=== PATIENT | female | born 1980 | race Caucasian/White ===

== ENCOUNTER 2017-08-02 19:37 | Emergency (ER) | payer OTHER ==
--- OUTSIDE RECORDS SUMMARY | 2017-08-02 19:39 | XMS REPORT | Clinical Summary ---
:1980 Author Organization [facility] Address [address] [place] [address] Care Team Providers Name Role Phone Robert Zhang MD Primary Care Provider Allergies Active Allergy Reactions Severity Noted Date Comments Cephalexin High 02/17/2017 Penicillins High 02/17/2017 Prednisolone High 02/17/2017 Current Medications Prescription Sig. Disp. Refills Start Date End Date Status metoprolol succinate XL TK 1 T PO ONCE D 0 02/14/2017 Active (TOPROL-XL) 25 mg 24 hr tablet meloxicam (MOBIC) 7.5 mg TK 1 T PO D 1 02/16/2017 Active tablet Active Problems No known active problems Encounters Date Type Specialty Care Team Description 03/15/2017 Office Visit Orthopedic Surgery Shubham Rubio. Tenosynovitis of left MD CRISTAL ankle (Primary Dx) 02/20/2017 Documentation Orthopedic Surgery Shubham Rubio. MD CRISTAL 02/17/2017 Hospital Encounter Radiology Shubham Rubio. Rupture of left MD CRISTAL Achilles tendon, initial encounter 02/17/2017 Office Visit Orthopedic Surgery Shubham Rubio Rupture of left Achilles tendon, initial encounter (Primary Dx); MD CRISTAL Injury of plantaris muscle or tendon, initial encounter 02/17/2017 Procedure Pass Radiology after 08/01/2016 Family History Medical History Relation Name Comments Diabetes Father Heart disease Father Kidney disease Father Skin cancer Father Stroke Father Relation Name Status Comments Father Social History Tobacco Use Types Packs/Day Years Used Date Never Smoker Alcohol Use Drinks/Week oz/Week Comments Yes Sex Assigned at Date Recorded Not on file Last Filed Vital Signs Vital Sign Reading Time Taken Blood Pressure - - Pulse - - Temperature - - Respiratory Rate - - Oxygen Saturation - - Inhaled Oxygen Concentration - - Weight 69.4 kg (153 lb) 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 Height 165.1 cm (5' 5") 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 FINDINGS: MARROW/JOINT SPACES: *Marrow: No marrow signal abnormalities, fractures or stress changes. Scattered areas of hematopoietic marrow are noted distal tibia and calcaneus. No suspicious marrow lesions. *Talar Dome/Cartilage:No osteochondral lesions of the talar dome or focal cartilage defects. *Additional Findings: None JOINT FLUID: *Small posterior ankle joint effusion TENDONS: *Achilles tendon: Mild non-insertional Achilles tendinosis and tendon thickening. No tears. Small amount of edema in the pre-Achilles fat can be seen with paratendinitis. *Anterior: Intact *Medial: intact. *Peroneal: Partial split tear of the peroneus longus tendon best seen on series 5 images 35 through 39. The peroneus brevis tendon is intact. *Additional Findings: Mild tenosynovitis of the posterior tibialis tendon. LIGAMENTS: *Syndesmotic: Ant rior syndesmotic ligaments are intact. *Lateral: Old sprain of the anterior talofibular ligament. The calcaneofibular ligament and posterior talofibular ligament are intact. *Medial: Deep deltoid ligament intact. The superficial deltoid ligament is attenuated that may reflect an old sprain. *Spring Ligament complex:Intact *Additional Findings: None SINUS TARSI: *Intact. PLANTAR FASCIA: *Intact. TARSAL TUNNEL: *Normal. SOFT TISSUES: * No fluid collections, hematomas or edema. OTHER: *None IMPRESSION: 1.Mild non-insertional Achilles tendinosis with findings that can be seen with paratendinitis. 2.Small posterior ankle joint effusion. 3.Partial split tear of the inframalleolar peroneus longus tendon. 4.Old low lateral ankle sprain. [facility]-[id number] Procedure Note Hm Interface, Radiology Results Incoming - 02/17/2017 6:55 PM PRESCHOOL TEACHER EXAMINATION: MRI LOWER EXTREMITY JOINT WO CONTRAST LEFT CLINICAL HISTORY: S86.012A Strain of left Achilles tendon initial encounter, PAIN COMPARISON: X-rays 02/17/2017 TECHNIQUE: Multiplanar multisequence MRI of the left ankle was performed without contrast. FINDINGS: MARROW/JOINT SPACES: * Marrow: No marrow signal abnormalities, fractures or stress changes. Scattered areas of hematopoietic marrow are noted distal tibia and calcaneus. No suspicious marrow lesions. * Talar Dome/Cartilage:No osteochondral lesions of the talar dome or focal cartilage defects. * Additional Findings: None JOINT FLUID: * Small posterior ankle joint effusion TENDONS: * Achilles tendon: Mild non-insertional Achilles tendinosis and tendon thickening. No tears. Small amount of edema in the pre-Achilles fat can be seen with paratendinitis. * Anterior: Intact * Medial: intact. * Peroneal: Partial split tear of the peroneus longus tendon best seen on series 5 images 35 through 39. The peroneus brevis tendon is intact. * Additional Findings: Mild tenosynovitis of the posterior tibialis tendon. LIGAMENTS: * Syndesmotic: Ant rior syndesmotic ligaments are intact. * Lateral: Old sprain of the anterior talofibular ligament. The calcaneofibular ligament and posterior talofibular ligament are intact. * Medial: Deep deltoid ligament intact. The superficial deltoid ligament is attenuated that may reflect an old sprain. * Spring Ligament complex:Intact * Additional Findings: None SINUS TARSI: * Intact. PLANTAR FASCIA: * Intact. TARSAL TUNNEL: * Normal. SOFT TISSUES: * No fluid collections, hematomas or edema. OTHER: * None IMPRESSION: 1. Mild non-insertional Achilles tendinosis with findings that can be seen with paratendinitis. 2. Small posterior ankle joint effusion. 3. Partial split tear of the inframalleolar peroneus longus tendon. 4. Old low lateral ankle sprain. [facility]-[id number] XR Calcaneus 2+ Vw Left (02/17/2017 11:21 AM) Specimen Performing Laboratory [facility] [address] [place] [id number] Narrative 2 view images of the left calcaneus reveals no evidence of acute fracture or dislocation. Bones are well mineralized. High calcaneal inclination. after 08/01/2016 Insurance Payer Benefit Plan / Group Subscriber ID Type Phone Address RAPHAEL LIM OPEN ACCESS/NETWORK xxxxxxxxxxx HMO
[2017-08-02 22:28] LABS: Urine Blood NEGATIVE (NEG); Urine Glucose NEGATIVE (NEG); Urine Protein NEGATIVE (NEG); Urine Specific Gravity 1.025 (1.005-1.030); Urine pH 5.5 (5.0-7.0)
[2017-08-02] MEDS ORDERED: NA CHLORIDE 0.9% 1,000 ML ONE (22:46)
[2017-08-02] MEDS ORDERED: ACETAMINOPHEN 500 MG TAB ONE (22:51)
[2017-08-02 22:54] LABS: Absolute Lymphocytes (CBC) 1.9 K/uL (0.7-4.9); Absolute Monocytes 0.5 K/uL (0.1-1.3); Absolute Neutrophil 3.8 K/uL (1.8-8.0); Eosinophils % 3.1 % (0-4.4); Lymphocytes % 29.8 % (15.3-44.8); MCH 29.4 pg (27.0-35.0); MCV 88.7 fL (80-100); MPV 9.2 fL (7.6-11.3); Monocytes % 7.4 % (3.3-12.3); RBC Red Blood Cell Count 4.73 M/uL (3.86-4.86)
[2017-08-02 23:06] LABS: Potassium 3.3 mEq/L (3.6-5.0)
--- NOTE | 2017-08-02 23:23 | EDPHYS ---
Physician Documentation [facility] Name: Massiel Hood Age: 37 yrs Sex: Female : 1980 Arrival Date: 08/02/2017 Time: 19:40 Bed 14 Private MD: Robert Zhang V ED Physician Jordan Mon HPI: 08/02 23:18 This 37 yrs old Female presents to ER via Ambulatory with complaints of cee Pelvic Pain, Headache. 23:18 The patient complains of pain to the forehead, left temporal area and right temporal cee area. The patient describes the headache as aching. Onset: The symptoms/episode began/occurred today. 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 - Social history:: Smoking status: Patient/guardian denies using tobacco. ROS: 23:19 Constitutional: Negative for fever, chills, and weight loss, Eyes: Negative for injury, cee pain, redness, and discharge, ENT: Negative for injury, pain, and discharge, Neck: Negative for injury, pain, and swelling, Cardiovascular: Negative for chest pain, palpitations, and edema, Respiratory: Negative for shortness of breath, cough, wheezing, and pleuritic chest pain, Abdomen/GI: Negative for abdominal pain, nausea, vomiting, diarrhea, and constipation, Back: Negative for injury and pain, MS/Extremity: Negative for injury and deformity, Skin: Negative for injury, rash, and discoloration, Psych: Negative for depression, anxiety, suicide ideation, homicidal ideation, and hallucinations, Allergy/Immunology: Negative for hives, rash, and allergies, Endocrine: Negative for neck swelling, polydipsia, polyuria, polyphagia, and marked weight changes, Hematologic/Lymphatic: Negative for swollen nodes, abnormal bleeding, and unusual bruising. 23:19 Abdomen/GI: Negative for abdominal pain. 23:19 : Positive for pelvic pain. 23:19 Neuro: Positive for headache. Exam: 23:19 Constitutional: This is a well developed, well nourished patient who is awake, alert, cee and in no acute distress. Head/Face: Normocephalic, atraumatic. Eyes: Pupils equal round and reactive to light, extra-ocular motions intact. Lids and lashes normal. Conjunctiva and sclera are non-icteric and not injected. Cornea within normal limits. Periorbital areas with no swelling, redness, or edema. ENT: Nares patent. No nasal discharge, no septal abnormalities noted. Tympanic membranes are normal and external auditory canals are clear. Oropharynx with no redness, swelling, or masses, exudates, or evidence of obstruction, uvula midline. Mucous membranes moist. Neck: Trachea midline, no thyromegaly or masses palpated, and no cervical lymphadenopathy. Supple, full range of motion without nuchal rigidity, or vertebral point tenderness. No Meningismus. Chest/axilla: Normal chest wall appearance and motion. Nontender with no deformity. No lesions are appreciated. Cardiovascular: Regular rate and rhythm with a normal S1 and S2. No gallops, murmurs, or rubs. Normal PMI, no JVD. No pulse deficits. Respiratory: Lungs have equal breath sounds bilaterally, clear to auscultation and percussion. No rales, rhonchi or wheezes noted. No increased work of breathing, no retractions or nasal flaring. Back: No spinal tenderness. No costovertebral tenderness. Full range of motion. Female : Normal external genitalia. Skin: Warm, dry with normal turgor. Normal color with no rashes, no lesions, and no evidence of cellulitis. MS/ Extremity: Pulses equal, no cyanosis. Neurovascular intact. Full, normal range of motion. Neuro: Awake and alert, GCS 15, oriented to person, place, time, and situation. Cranial nerves II-XII grossly intact. Motor strength 5/5 in all extremities. Sensory grossly intact. Cerebellar exam normal. Normal gait. Psych: Awake, alert, with orientation to person, place and time. Behavior, mood, and affect are within normal limits. 23:19 Abdomen/GI: Inspection: abdomen appears normal, Bowel sounds: normal, Palpation: abdomen is soft and non-tender, Liver: no appreciated palpable abnormalities, Hernia: not appreciated. 23:19 Neuro: Orientation: is normal, appropriate for stated age, no acute changes, Mentation: is normal, appropriate for stated age, no acute changes, Memory: is normal, appropriate for stated age, no acute changes, Cranial nerves: grossly normal, is grossly normal based on the patient's age, no acute changes, Cerebellar function: is grossly normal, is grossly normal based on the patient's age, no acute changes, Motor: is normal, Sensation: is normal, Gait: not tested. Babinski testing is normal, seizure activity, is not displayed by the patient. Vital Signs: 20:09 BP 150 / 98; Pulse 92; Resp 16; Temp 99.4; Pulse Ox 99% on R/A; Weight 74.84 kg; Height aj 5 ft. 5 in. (165.10 cm); Pain 8/10; 21:31 BP 136 / 77; Pulse 69; Resp 18; cb2 22:30 BP 137 / 86 RA Supine (auto/reg); Pulse 66 LA; Resp 18 S; Pulse Ox 99% on R/A; cb2 08/03 00:02 BP 138 / 79 RA Sitting (auto/reg); Pulse 73 LA; Resp 18 S; Temp 98.3(O); Pulse Ox 98% cb2 on R/A; 08/02 20:09 Body Mass Index 27.46 (74.84 kg, 165.10 cm) aj MDM: 08/02 22:12 Patient medically screened. [facility] 23:19 Data reviewed: vital signs, nurses notes, lab test result(s). [facility] 08/02 21:56 Order name: Urine Dipstick--Ancillary (enter results); Complete Time: 23:17 2 08/02 22:13 Order name: Abo/rh Typing [facility] 08/02 22:13 Order name: Basic Metabolic Panel; Complete Time: 23:17 [facility] 08/02 22:13 Order name: CBC with Diff; Complete Time: 23:17 [facility] 08/02 22:51 Order name: Urine --Ancillary (enter results) [facility] 08/02 22:13 Order name: IV Saline Lock; Complete Time: 22:45 [facility] 08/02 22:13 Order name: Labs collected and sent; Complete Time: 22:45 [facility] 08/02 22:13 Order name: NPO; Complete Time: 23:15 [facility] 08/02 22:13 Order name: Urine Dipstick-Ancillary (obtain specimen); Complete Time: 22:49 [facility] 08/02 22:15 Order name: Urine Test (obtain specimen); Complete Time: 22:50 [facility] 08/02 23:24 Order name: Vital Signs; Complete Time: 00:03 [facility] Administered Medications: 22:50 Drug: NS 0.9% 1000 ml Route: IV; Rate: 1 bolus; Site: left antecubital; mg2 23:49 Follow up: Response: No adverse reaction mg2 22:54 Drug: Tylenol 1000 mg Route: PO; mg2 23:49 Follow up: Response: No adverse reaction; Pain is decreased mg2 23:49 Drug: Potassium Chloride 40 mEq Route: PO; mg2 08/03 00:12 Follow up: Response: No adverse reaction mg2 Disposition: 08/02/17 23:23 Discharged to Home. Impression: Pelvic and perineal pain, Headache. - Condition is Stable. - Discharge Instructions: General Headache Without Cause, Pelvic Pain, Female, General Headache Without Cause, [place]of[place]. - Prescriptions for Ibuprofen 600 mg Oral Tablet - take 1 tablet by ORAL route every 6 hours As needed take with food; 21 tablet. Tylenol- Codeine #3 300-30 mg Oral Tablet - take 2 tablets by ORAL route every 6 hours As needed; 20 tablet. - Medication Reconciliation Form, Thank You Letter, Antibiotic Education, Prescription Opioid Use form. - Follow up: Robert Zhang MD; When: 2 - 3 days; Reason: Recheck today's complaints, Continuance of care, Re-evaluation by your physician. Follow up: Arcelia Harley MD; When: 2 - 3 days; Reason: Recheck today's complaints, Continuance of care, Re-evaluation by your physician. - Problem is new. - Symptoms have improved. Signatures: Dispatcher [employer] Merissa Cao RN RN aj Anderson, Corey, MD MD cha Gardose, Michele, RN RN mg2 Corrections: (The following items were deleted from the chart) 00:20 0502 23:23 08/02/2017 23:23 Discharged to Home. Impression: Pelvic and perineal pain; mg2 Headache. Condition is Stable. Forms are Medication Reconciliation Form, Thank You Letter, Antibiotic Education, Prescription Opioid Use. Follow up: Robert Zhang; When: 2 - 3 days; Reason: Recheck today's complaints, Continuance of care, Re-evaluation by your physician. Follow up: Arcelia Harley; When: 2 - 3 days; Reason: Recheck today's complaints, Continuance of care, Re-evaluation by your physician. Problem is new. Symptoms have improved. cee
--- NOTE | 2017-08-02 23:23 | ER ---
Nurse's Notes [facility] Name: Massiel Hood Age: 37 yrs Sex: Female : 1980 Arrival Date: 08/02/2017 Time: 19:40 Bed 14 Private MD: Robert Zhang V Diagnosis: Pelvic and perineal pain;Headache Presentation: 08/02 20:07 Presenting complaint: Patient states: Pelvic pain for 2 weeks. 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 Transition of care: patient was not received from another setting of care. Onset of symptoms was July 21, 2017. Initial Sepsis Screen: Does the patient meet any 2 criteria? No. Patient's initial sepsis screen is negative. Does the patient have a suspected source of infection? No. Patient's initial sepsis screen is negative. Care prior to arrival: None. 20:07 Method Of Arrival: Ambulatory aj 20:07 Acuity: HORACIO 3 aj Triage Assessment: 20:09 Headache History: The patient has had previous headaches. General: Appears in no aj apparent distress. uncomfortable, Behavior is calm, cooperative, appropriate for age. Pain: Complains of pain in pelvis Pain currently is 8 out of 10 on a pain scale. Also complains of headache. Neuro: Level of Consciousness is awake, alert, obeys commands, Oriented to person, place, time, situation. Respiratory: Airway is patent Respiratory effort is even, unlabored, Respiratory pattern is regular, symmetrical. : Reports pain in suprapubic area. Derm: Skin is intact, is healthy with good turgor, Skin is pink, warm \T\ dry. normal. 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 - Social history:: Smoking status: Patient/guardian denies using tobacco. Screenin:41 Abuse screen: Denies threats or abuse. Nutritional screening: No deficits noted. mg2 Tuberculosis screening: No symptoms or risk factors identified. Fall Risk None identified. Assessment: 21:42 General: Appears in no apparent distress. comfortable, Behavior is calm, cooperative, mg2 quiet. Pain: Complains of pain in lower abdomen Pain does not radiate. Pain Quality of pain is described as aching, Pain began gradually, Is intermittent. Neuro: Level of Consciousness is awake, alert, obeys commands, Oriented to person, place, time. Cardiovascular: Capillary refill < 3 seconds Patient's skin is warm and dry. Respiratory: Airway is patent Respiratory effort is even, unlabored, Respiratory pattern is regular, symmetrical. GI: Abdomen is flat. : Reports pain pelvic area. EENT: No deficits noted. Derm: Skin is intact, Skin is pink, warm \T\ dry. normal. Musculoskeletal: No signs and/or symptoms reported regarding the musculoskeletal system. 22:40 Reassessment: Patient appears in no apparent distress at this time. Patient and/or mg2 family updated on plan of care and expected duration. Pain level reassessed. Patient is alert, oriented x 3, equal unlabored respirations, skin warm/dry/pink. Patient states feeling better. 23:40 Reassessment: Patient appears in no apparent distress at this time. Patient and/or mg2 family updated on plan of care and expected duration. Pain level reassessed. Patient is alert, oriented x 3, equal unlabored respirations, skin warm/dry/pink. Patient states feeling better. Vital Signs: 20:09 BP 150 / 98; Pulse 92; Resp 16; Temp 99.4; Pulse Ox 99% on R/A; Weight 74.84 kg; Height aj 5 ft. 5 in. (165.10 cm); Pain 8/10; 21:31 BP 136 / 77; Pulse 69; Resp 18; cb2 22:30 BP 137 / 86 RA Supine (auto/reg); Pulse 66 LA; Resp 18 S; Pulse Ox 99% on R/A; cb2 08/03 00:02 BP 138 / 79 RA Sitting (auto/reg); Pulse 73 LA; Resp 18 S; Temp 98.3(O); Pulse Ox 98% cb2 on R/A; 08/02 20:09 Body Mass Index 27.46 (74.84 kg, 165.10 cm) ED Course: 08/02 19:40 Patient arrived in ED. am2 19:40 Robert Zhang MD is Private Physician. am2 20:08 Triage completed. aj 20:09 Arm band placed on right wrist. Patient placed in waiting room, Patient notified of wait time. 21:26 Won Andujar, CATRACHITA is Primary Nurse. mg2 22:10 No provider procedures requiring assistance completed. mg2 22:12 Jordan Mon MD is Attending Physician. [facility] 22:45 Initial lab(s) drawn, by nv, sent to lab. Inserted saline lock: 20 gauge in left cb2 antecubital area, using aseptic technique. Blood collected. 23:22 Robert Zhang MD is Referral Physician. [facility] 23:22 Arcelia Harley MD is Referral Physician. [facility] 08/03 00:20 Patient has correct armband on for positive identification. Warm blanket given. mg2 00:20 IV discontinued. mg2 Administered Medications: 08/02 22:50 Drug: NS 0.9% 1000 ml Route: IV; Rate: 1 bolus; Site: left antecubital; mg2 23:49 Follow up: Response: No adverse reaction mg2 22:54 Drug: Tylenol 1000 mg Route: PO; mg2 23:49 Follow up: Response: No adverse reaction; Pain is decreased mg2 23:49 Drug: Potassium Chloride 40 mEq Route: PO; mg2 08/03 00:12 Follow up: Response: No adverse reaction mg2 Outcome: 08/02 23:23 Discharge ordered by . [facility] 08/03 00:19 Discharged to home ambulatory. mg2 Condition: stable Discharge instructions given to patient, Instructed on discharge instructions, follow up and referral plans. Demonstrated understanding of instructions, follow-up care, medications, Prescriptions given X 2. 00:20 Patient left the ED. mg2 Signatures: Merissa Chris RN RN Jordna Luna MD MD cha Moreno, Amanda am2 Stevie Patel cb2 Won Andujar, CATRACHITA RN mg2 Corrections: (The following items were deleted from the chart) 02:20 02:18 No provider procedures requiring assistance completed. mg2 mg2 02:20 02:18 IV discontinued, mg2 mg2 02:21 05 20:09 Pain: Complains of pain in pelvis Pain currently is 8 out of 10 on a pain mg2 scale. aj
[2017-08-02 23:28] LABS: Urine Specific Gravity 1.025 (1.005-1.030)
[2017-08-02] MEDS ORDERED: POTASSIUM CL SA 10 MEQ TAB PO ONE (23:43)
[2017-08-03 01:11] VITALS: BP 138/79; TEMP 98.3; O2SAT 98
== END 2017-08-03 00:20 | disposition home or self-care (01) ==
LOC: ER 19:37
DX: R10.2 Pelvic and perineal pain (principal); R51 Headache
CPT/HCPCS: 36415; 80048; 81003; 81025; 85025; 86900; 86901; 99284; J7030

== ENCOUNTER 2017-08-29 06:28 | Day surgery (SDC) | payer OTHER ==
--- OUTSIDE RECORDS SUMMARY | 2017-08-29 06:33 | XMS REPORT | Clinical Summary ---
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 4.Old low lateral ankle sprain. [facility]-[id number] Procedure Note Hm Interface, Radiology Results Incoming - 02/17/2017 6:55 PM EMAIL DESIGNER EXAMINATION: MRI LOWER EXTREMITY JOINT WO CONTRAST [...] tendon. 4. Old low lateral ankle sprain. [id number] XR Calcaneus 2+ Vw Left (02/17/2017 11:21 AM) Specimen [facility] [address] [place] [id number] Narrative 2 view images of the left calcaneus reveals no evidence of acute fracture or dislocation. Bones are well mineralized. High calcaneal inclination. after 08/28/2016 Insurance Payer Benefit Plan / Group Subscriber ID Type Phone Address RAPHAEL LIM OPEN ACCESS/NETWORK xxxxxxxxxxx HMO
[2017-08-29] MEDS ORDERED: Ringers Lactate 1,000 ML IV ONE ×2 (06:36→09:15)
[2017-08-29] MEDS ORDERED: SCOPOLAMINE HYDROBROMIDE PATCH TD ONE (06:47)
[2017-08-29] MEDS ORDERED: ROCURONIUM 50 MG/5 ML VIAL IV ONE (07:05)
[2017-08-29] MEDS ORDERED: PROPOFOL 200 MG/20 ML VIAL IV ONE (07:05)
[2017-08-29] MEDS ORDERED: ONDANSETRON HCL 40 MG/20 ML VIAL ONE (07:05)
[2017-08-29] MEDS ORDERED: LIDOCAINE 1% MPF 2 ML AMPULE ONE (07:05)
[2017-08-29] MEDS ORDERED: FENTANYL CITR 250 MCG/5 ML ONE (07:05)
[2017-08-29] MEDS ORDERED: MIDAZOLAM HCL 2 MG/2 ML INJ ONE (07:05)
[2017-08-29] MEDS ORDERED: KETOROLAC 30 MG/ML INJ ONE (09:01)
[2017-08-29] MEDS ORDERED: Mastisol Adhesive Liq ONE (09:16)
[2017-08-29 09:42] VITALS: O2SAT 100
[2017-08-29] MEDS: MORPHINE 4 MG/ML SYR ONE ×2 (09:50→09:55)
[2017-08-29 10:32] VITALS: BP 112/58; TEMP 97.8
[2017-08-29] MEDS ORDERED: HYDROCODONE/APAP 5/325 MG TAB ONE (10:34)
[2017-08-29] MEDS ORDERED: ONDANSETRON 4 MG/2 ML VIAL ONE (11:07)
[2017-08-29] MEDS ORDERED: METOCLOPRAMIDE 10 MG/2mL INJ ONE (11:19)
--- NOTE | 2017-08-29 15:56 | OP ---
Date of Procedure: 08/29/2017 Surgeon: Arcelia Harley MD Vice President Business & Corporate Development: Siri Bradshaw. Preoperative Diagnoses: Pelvic pain, heavy menstrual bleeding with regular cycles, and dysmenorrhea. The patient also has history of Essure coil implants in her tubes, which failed, for which she rece ived tubal ligation. Postoperative Diagnoses: 1.Pelvic pain, heavy menstrual bleeding with regular cycles, and dysmenorrhea. The patient also has history of Essure coil implants in her tubes, which failed for which she received tubal ligation. 2.Endometriosis. Procedures Performed: Diagnostic hysteroscopy and repositioning of the IUD strings, diagnostic lapar oscopy, bilateral salpingectomy, and an endometriotic nodule excision from the posterior cul-de-sac. Anesthesia: General. Estimated Blood Loss: Minimal. Specimens: Bilateral tubes and rectovaginal septum and cul-de-sac nodule. Right mesosalpinx with en dometriotic implant as well. Complications: No complications. Drains: No drains. Condition: The patient is stable. Indications For Procedure: The patient is a 37-year-old with tubal ligation after failed Essure. Lauryn barrow had conceived and delivered a full-term child and then followed by a miscarriage before the tubal d one. She had heavy bleeding and severe dysmenorrhea, so a Mirena IUD was placed, and this bleeding and the pain with periods have gotten better. However, in the past couple of months her pelvic pain had res tarted and was continuous daily and impairing to her life. No evidence of any PID. GC was negative when tested in the office. So she was offered diagnostic laparoscopy to look around for endometriosi s, excise this, and the patient also worried that her coils could be causing her pain. Discussed crystal t this probably is unrelated, however, a bilateral salpingectomy will be performed, since she is alre kristina status post tubal ligation and now has pelvic pain, possible salpingitis is as an etiology. Description Of Procedure: After being re-consented here in the preop, she was taken back to the OR, no antibiotics were given. She was taken to the operating room and placed in a supine fashion on the operating table. After general anesthesia was given, she was placed in a dorsal lithotomy position. Pelvic exam was performed and the uterus was found to be anteflexed, small. No adnexal masses were p alpable. No nodularity fairly obvious on the uterosacral ligaments. The abdomen, vulva, vagina, and perineum were prepped and draped in a sterile fashion. The arms were tucked by the side and positioning confirmed, stockings were placed. Then, a speculum was placed in the cervix. Anterior lip was exposed. Anterior lip was grasped with an Allis clamp. Diagnostic Sl imLine hysteroscope placed through the cervical canal into the uterine cavity to visualize the uterin e side of the tubal coils. After placing this, the IUD was in great position. Both tubal ostia were visualized. However, no coils were seen at all. Diagnostic VCare was introduced. There was a worry that the strings could be pushed back in, so plan was to repeat the scope at the end and reposition the strings. Reese was placed to drain the bladder and attached to a drainage bag. This area was draped. A 1 cm infraumbilical incision along the old scar was made in a transverse fashion. Then the fascia was visualized and incised tagged on both sides with 0 Vicryl sutures. After getting into the perito neum, S retractors placed and Dipika introduced. The strings attached to the retainers on the Dipika . After insufflating the abdominal cavity and placing the patient in supine and a flat position, upper abdominal surfaces were well visualized. The liver, gallbladder, and her band all were in place. No evidence of any peritoneal endometriosis here. The patient was placed in a T-poncho. A 5 mm left low er quadrant suprapubic ports were placed under direct vision without any problems and survey of the p elvic cavity, the appendix was unremarkable. Bowel had adhesions. There was a large rectovaginal no dule extending from the distal part of the rectovaginal septum onto the anterior peritoneum of the re ctum in the cul-de-sac going all the way to the level of the rectal wall, however, not invading the r ectal wall. Then, thorough visualization of the peritoneal surface and the pelvic cavity, including the posterior broad ligaments on both sides, anterior broad ligaments, anterior cul-de-sac, mesosalpinx, round lig aments, tubes and ovaries did not reveal any other endometriosis except as described above and 1 impl ant in the mesosalpinx at the insertion of the round ligament and the tube on the uterus, this was in between, implant was excised along with the proximal part of the right tube by opening the mesosalpi nx and dissecting the mesosalpinx with the LigaSure and taking this out. The distal part of the righ t tube was taken down with the LigaSure along with the implant, and this was handed out for permanent pathology. The distal part of the right tube was also removed with the help of the LigaSure all the way to the fimbriated end completely, and it was removed. Going to the posterior cul-de-sac, medium EEA Sizer was placed in the rectum and advanced a little hi gher into the distal part of the sigmoid. Then, the peritoneum on the posterior wall of the vagina w as incised with the help of a monopolar needle circumferentially and the top half way, which was on t he rectovaginal septum, the monopolar was used in the bottom half. The peritoneum was dissected with the help of [place] and cut with the help of scissors circumferentially, all the lesions were incl uded and normal peritoneum was incised, and attachment to the rectum was evaluated. With push-spread technique, separate windows were made, making the perirectal fat to thin out and visualize the recta l wall. Once this was visualized, the bipolar LigaSure was used with a curved tip to cauterize and c ut the nodule away from the rectum. Most of the fat also had to be removed along with the nodule as it was infiltrating very close to the rectal wall. Once this was all removed in total, it was pulled out through the umbilical trocar. Thorough irrigation and suction were performed. The left tube wa s removed. The proximal part of the tube removed carefully in its entirety and then the distal part of the tube removed all with a curved tip LigaSure. After all specimens were retrieved, thorough irr igation and suction of the cavity were performed. There was excellent hemostasis at all pedicles. T he trocars were removed under direct vision. Gas was desufflated. Fascia at the umbilicus closed wi th the help of 0 Vicryl in [id number] fashion, simple 4-0 Vicryl, 3-0 sutures to close the incis ions. The Reese and the VCare were removed. Diagnostic hysteroscopy was performed again. Both strings wer e pushed into the uterine cavity, endometrial canal superiorly right on top of the Mirena, so these w ere grasped with the help of hysteroscopic graspers after turning the diagnostic scope to an operativ e scope, and this was straightened out into the cervical canal without any problems. The scope was r emoved after checking the position of the IUD in the upper part of the endometrial canal. Once this noted to be in a good position, the scope was removed. Reese was removed. All the instruments, need les, and sponges were counted x2 and were correct. We will see her in a week for followup. DERIC/LANRE Voice ID: [id number] Report ID: [id number]
== END 2017-08-29 12:10 | disposition home or self-care (01) ==
LOC: OR 06:28
PROVIDERS: ATTEND Obstetrics & Gynecology
PROC: 0UBF4ZZ Excision of Cul-de-sac, Percutaneous Endoscopic Approach (ICD-10-PCS; 2017-08-29)
PROC: 0UJD8ZZ Inspection of Uterus and Cervix, Via Natural or Artificial Opening Endoscopic (ICD-10-PCS; 2017-08-29)
PROC: 0UT74ZZ Resection of Bilateral Fallopian Tubes, Percutaneous Endoscopic Approach (ICD-10-PCS; principal; 2017-08-29 07:30)
DX: N80.3 Endometriosis of pelvic peritoneum (principal); R10.2 Pelvic and perineal pain; N94.6 Dysmenorrhea, unspecified; N92.0 Excessive and frequent menstruation with regular cycle
CPT/HCPCS: 81025; 88302; 88305; J2001; J2250; J2405; J2765

== ENCOUNTER 2017-11-15 17:48 | Emergency (ER) | payer OTHER ==
--- OUTSIDE RECORDS SUMMARY | 2017-11-15 17:51 | XMS REPORT | Clinical Summary ---
:1980 Author Organization [facility] Address [address] [place] [address] Care Team Providers Name Role Phone Robert [...] initial encounter 02/17/2017 Procedure Pass Radiology after 11/14/2016 Family History Medical History Relation Name Comments [...] 69.4 kg (153 lb) 02/17/2017 3:09 PM [facility] Height 165.1 cm (5' 5") 02/17/2017 3:09 PM [facility] Body Mass Index 25.46 02/17/2017 3:09 PM [facility] Plan of Treatment Health Maintenance Due Date Last Done Comments CERVICAL CANCER SCREENING 06/11/2000 INFLUENZA VACCINE 11/01/2017 Procedures Procedure Name Priority Date/Time Associated Diagnosis Comments MRI LOWER EXTREMITY STAT 02/17/2017 6:27 PM Rupture of left Results for this JOINT WO CONTRAST [facility] Achilles tendon, procedure are in LEFT initial encounter the results section. XR CALCANEUS 2+ VW Routine 02/17/2017 11:21 AM Achilles tendon pain Results for this LEFT [facility] procedure are in the results section. after 11/14/2016 Results MRI Lower Extremity Joint Wo Contrast Left (02/17/2017 6:27 PM) Narrative Performed At EXAMINATION:MRI LOWER EXTREMITY JOINT WO CONTRAST LEFT [facility] CLINICAL HISTORY:S86.012A Strain of left Achilles tendoninitial [...] longus tendon. 4.Old low lateral ankle sprain. [facility]-[id number] Procedure Note Hm Interface, Radiology Results Incoming - 02/17/2017 6:55 PM [facility] EXAMINATION: MRI LOWER EXTREMITY JOINT WO CONTRAST [...] tendon. 4. Old low lateral ankle sprain. [facility]-[id number] Performing Organization Address City/State/Zipcode Phone Number [facility] [address] [place] [address] XR Calcaneus 2+ Vw Left (02/17/2017 11:21 AM) Narrative Performed At 2 view images of the left calcaneus reveals no evidence of acute fracture [facility] or dislocation. Bones are well mineralized. High calcaneal inclination. Performing Organization Address City/[facility]/Zipcode Phone Number [facility] [address] [place] [address] after 11/14/2016 Insurance Payer Benefit Plan / Group Subscriber ID Type Phone Address [employer]HAEL OPEN ACCESS/NETWORK xxxxxxxxxxx O
[2017-11-15] MEDS ORDERED: DIPHENHYDRAMINE 50 MG/ML VIAL ONE (18:45)
[2017-11-15] MEDS ORDERED: METOCLOPRAMIDE 10 MG/2mL INJ ONE (18:45)
[2017-11-15] MEDS ORDERED: KETOROLAC 30 MG/ML INJ ONE (18:46)
[2017-11-15] MEDS ORDERED: NA CHLORIDE 0.9% 1,000 ML ONE (18:46)
--- NOTE | 2017-11-15 19:44 | ER ---
Nurse's Notes [facility] Name: Massiel Hood Age: 37 yrs Sex: Female : 1980 Arrival Date: 11/15/2017 Time: 17:53 Bed 6 Private MD: None, None Diagnosis: Migraine Presentation: 11/15 18:05 Presenting complaint: Patient states: migraine x 2 days. Pt states that this feels like ss the migraines she usually gets, but her medications are not helping. Transition of care: patient was not received from another setting of care. Onset of symptoms was November 14, 2017. Risk Assessment: Do you want to hurt yourself or someone else? Patient reports no desire to harm self or others. Initial Sepsis Screen: Does the patient have a suspected source of infection? No. Patient's initial sepsis screen is negative. Care prior to arrival: None. 18:05 Method Of Arrival: Ambulatory ss 18:05 Acuity: HORACIO 3 ss 18:14 Note Pt states that she has been under a lot of stress lately. ss 19:11 Initial Sepsis Screen: Does the patient meet any 2 criteria? No. Patient's initial lp1 sepsis screen is negative. Triage Assessment: 19:10 Headache History: The patient has had previous headaches and this one is similar to lp1 previous episodes. General: Appears uncomfortable. Pain: Complains of pain in left temporal area Pain radiates to forehead Pain began 1 day ago. 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 - Social history:: Smoking status: Patient/guardian denies using tobacco. - Ebola Screening: : No symptoms or risks identified at this time. Screenin:11 Abuse screen: Denies threats or abuse. Denies injuries from another. Nutritional hb screening: No deficits noted. Tuberculosis screening: No symptoms or risk factors identified. Fall Risk None identified. Assessment: 18:14 General: Appears in no apparent distress. uncomfortable, Behavior is cooperative, hb crying. Pain: Pain currently is 10 out of 10 on a pain scale. Also complains of nausea, photophobia. Neuro: Level of Consciousness is awake, alert, obeys commands, Oriented to person, place, time, situation, Reports headache in left parietal area. Cardiovascular: Capillary refill < 3 seconds Patient's skin is warm and dry. Respiratory: Airway is patent Trachea midline Respiratory effort is even, unlabored, Respiratory pattern is regular, symmetrical. GI: Reports nausea. : No signs and/or symptoms were reported regarding the genitourinary system. EENT: No signs and/or symptoms were reported regarding the EENT system. Derm: No signs and/or symptoms reported regarding the dermatologic system. Skin is intact, is healthy with good turgor, Skin is pink, warm \\T\\ dry. Musculoskeletal: No signs and/or symptoms reported regarding the musculoskeletal system. 19:08 Reassessment: Patient states medication "took the edge off"; States continue pain to lp1 left side of head and around to front of head. Pain: Pain currently is 8 out of 10 on a pain scale. Neuro: Level of Consciousness is awake, alert, obeys commands, Oriented to person, place, time, situation, Gait is steady, Speech is normal, Pupils are PERRLA. 19:45 Reassessment: Patient is alert, oriented x 3, equal unlabored respirations, skin lp1 warm/dry/pink. Patient states feeling better. Patient states symptoms have improved. Pain: Denies pain. Vital Signs: 18:05 Weight 74.84 kg; Height 5 ft. 5 in. (165.10 cm); Pain 10/10; ss 18:11 BP 150 / 100; Pulse 94; Resp 15; Temp 98.5(O); Pulse Ox 100% on R/A; hb 19:10 BP 142 / 101; Pulse 82; Resp 12; Pulse Ox 99% on R/A; Pain 8/10; lp1 19:44 BP 125 / 83; Pulse 78; Resp 16; Pulse Ox 100% on R/A; Pain 0/10; lp1 18:05 Body Mass Index 27.46 (74.84 kg, 165.10 cm) Joey Coma Score: 18:48 Eye Response: spontaneous(4). Verbal Response: oriented(5). Motor Response: obeys kb commands(6). Total: 15. ED Course: 17:53 Patient arrived in ED. sb2 17:53 None, None is Private Physician. sb2 18:09 Caprice Borja, RN is Primary Nurse. hb 18:11 Arm band placed on right wrist. hb 18:12 Triage completed. ss 18:14 Iva Dorman FNP-C is [facility]. kb 18:14 Vincent Melgar MD is Attending Physician. kb 18:14 Patient has correct armband on for positive identification. Bed in low position. Call hb light in reach. Side rails up X 1. 18:52 Inserted saline lock: 20 gauge in right antecubital area, using aseptic technique. hb 19:11 No provider procedures requiring assistance completed. lp1 19:52 IV discontinued, No redness/swelling at site. Pressure dressing applied. lp1 Administered Medications: 18:51 Drug: NS 0.9% 1000 ml Route: IV; Rate: 1000 ml; Site: right antecubital; hb 19:45 Follow up: IV Status: Completed infusion; IV Intake: 1000ml lp1 18:51 Drug: Reglan 10 mg Route: IVP; Site: right antecubital; hb 19:46 Follow up: Response: Marked relief of symptoms lp1 18:51 Drug: Benadryl 12.5 mg Route: IVP; Site: right antecubital; hb 19:46 Follow up: Response: Marked relief of symptoms lp1 18:51 Drug: TORadol 30 mg Route: IVP; Site: right antecubital; hb 19:46 Follow up: Response: Marked relief of symptoms lp1 Intake: 19:45 IV: 1000ml; Total: 1000ml. lp1 Outcome: 19:44 Discharge ordered by . kb 19:52 Discharged to home ambulatory, with friend. lp1 19:52 Condition: good 19:52 Discharge instructions given to patient, Instructed on discharge instructions, follow up and referral plans. Demonstrated understanding of instructions, follow-up care. 19:52 Patient left the ED. lp1 Signatures: Iva Dorman FNP-C FNP-Ckb Smirch, Shelby, RN RN Lucina Adams RN RN lp1 Caprice Borja, CATRACHITA DOMÍNGUEZ Dodie Cardozo sb2 Corrections: (The following items were deleted from the chart) 18:14 18:11 BP 150 / 100; Pulse 94bpm; Resp 15bpm; Pulse Ox 100% RA; hb hb
--- NOTE | 2017-11-15 19:45 | EDPHYS ---
Physician Documentation [facility] Name: Massiel Hood Age: 37 yrs Sex: Female : 1980 Arrival Date: 11/15/2017 Time: 17:53 Bed 6 Private MD: None, None ED Physician Vincent Melgar HPI: 11/15 18:48 This 37 yrs old Female presents to ER via Ambulatory with complaints of kb Headache - MIGRAINE. 18:48 The patient complains of pain to the top of head. The patient describes the headache as kb constant, throbbing. Onset: The symptoms/episode began/occurred yesterday. Associated signs and symptoms: Pertinent positives: Photophobia. Severity of symptoms: At its worst the pain was moderate, in the emergency department the pain is unchanged. Headache History: The patient has had previous headaches and this one is similar to previous episodes. The symptoms are alleviated by nothing. the symptoms are aggravated by lights, movement, noise, stress. The patient has experienced similar episodes in the past, chronically. The patient has not recently seen a physician. Pt states she has had a migraine since yesterday and it hasn't gone away with advil like it normally does. States she has been under a lot of stress and that is one of her triggers. Also reports she has menstrual migraines and she is on her cycle. 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 - Social history:: Smoking status: Patient/guardian denies using tobacco. - Ebola Screening: : No symptoms or risks identified at this time. ROS: 18:48 Constitutional: Negative for fever, chills, and weight loss, Cardiovascular: Negative kb for chest pain, palpitations, and edema, Respiratory: Negative for shortness of breath, cough, wheezing, and pleuritic chest pain, Abdomen/GI: Negative for abdominal pain, nausea, vomiting, diarrhea, and constipation, Back: Negative for injury and pain, : Negative for injury, bleeding, discharge, and swelling, MS/Extremity: Negative for injury and deformity, Skin: Negative for injury, rash, and discoloration. 18:48 Neuro: Positive for headache. Exam: 18:48 Constitutional: This is a well developed, well nourished patient who is awake, alert, kb and in no acute distress. Head/Face: Normocephalic, atraumatic. Chest/axilla: Normal chest wall appearance and motion. Nontender with no deformity. No lesions are appreciated. Cardiovascular: Regular rate and rhythm with a normal S1 and S2. No gallops, murmurs, or rubs. Normal PMI, no JVD. No pulse deficits. Respiratory: Lungs have equal breath sounds bilaterally, clear to auscultation and percussion. No rales, rhonchi or wheezes noted. No increased work of breathing, no retractions or nasal flaring. Abdomen/GI: Soft, non-tender, with normal bowel sounds. No distension or tympany. No guarding or rebound. No evidence of tenderness throughout. Skin: Warm, dry with normal turgor. Normal color with no rashes, no lesions, and no evidence of cellulitis. MS/ Extremity: Pulses equal, no cyanosis. Neurovascular intact. Full, normal range of motion. Neuro: Awake and alert, GCS 15, oriented to person, place, time, and situation. Cranial nerves II-XII grossly intact. Motor strength 5/5 in all extremities. Sensory grossly intact. Cerebellar exam normal. Normal gait. Vital Signs: 18:05 Weight 74.84 kg; Height 5 ft. 5 in. (165.10 cm); Pain 10/10; ss 18:11 BP 150 / 100; Pulse 94; Resp 15; Temp 98.5(O); Pulse Ox 100% on R/A; hb 19:10 BP 142 / 101; Pulse 82; Resp 12; Pulse Ox 99% on R/A; Pain 8/10; lp1 19:44 BP 125 / 83; Pulse 78; Resp 16; Pulse Ox 100% on R/A; Pain 0/10; lp1 18:05 Body Mass Index 27.46 (74.84 kg, 165.10 cm) [place] Coma Score: 18:48 Eye Response: spontaneous(4). Verbal Response: oriented(5). Motor Response: obeys kb commands(6). Total: 15. MDM: 18:15 Patient medically screened. kb 18:48 Data reviewed: vital signs, nurses notes. Data interpreted: Pulse oximetry: on room air kb is 100 %. Interpretation: normal. 19:44 Counseling: I had a detailed discussion with the patient and/or guardian regarding: the kb historical points, exam findings, and any diagnostic results supporting the discharge/admit diagnosis, the need for outpatient follow up, a family practitioner, to return to the emergency department if symptoms worsen or persist or if there are any questions or concerns that arise at home. 11/15 18:19 Order name: IV Start; Complete Time: 18:50 kb Administered Medications: 18:51 Drug: NS 0.9% 1000 ml Route: IV; Rate: 1000 ml; Site: right antecubital; hb 19:45 Follow up: IV Status: Completed infusion; IV Intake: 1000ml lp1 18:51 Drug: Reglan 10 mg Route: IVP; Site: right antecubital; hb 19:46 Follow up: Response: Marked relief of symptoms lp1 18:51 Drug: Benadryl 12.5 mg Route: IVP; Site: right antecubital; hb 19:46 Follow up: Response: Marked relief of symptoms lp1 18:51 Drug: TORadol 30 mg Route: IVP; Site: right antecubital; hb 19:46 Follow up: Response: Marked relief of symptoms lp1 Disposition: 11/15/17 19:44 Discharged to Home. Impression: Migraine. - Condition is Stable. - Discharge Instructions: Migraine Headache, [id number]. - Medication Reconciliation Form, Thank You Letter, Antibiotic Education, Prescription Opioid Use form. - Follow up: Emergency Department; When: As needed; Reason: Worsening of condition. Follow up: Private Physician; When: 2 - 3 days; Reason: Recheck today's complaints, Continuance of care, Re-evaluation by your physician. Addendum: 11/30/2017 10:53 Co-signature as Attending Physician, Vincent Melgar MD I agree with the assessment and k dr plan of care. Signatures: Iva Dorman, ASSISTANT NURSE MANAGER-C ASSISTANT NURSE MANAGER-CkVincent Gamboa MD MD kdr Pena, Laura, RN RN lp1 Caprice Borja RN RN Corrections: (The following items were deleted from the chart) 11/15 19:52 19:44 11/15/2017 19:44 Discharged to Home. Impression: Migraine. Condition is Stable. lp1 Forms are Medication Reconciliation Form, Thank You Letter, Antibiotic Education, Prescription Opioid Use. Follow up: Emergency Department; When: As needed; Reason: Worsening of condition. Follow up: Private Physician; When: 2 - 3 days; Reason: Recheck today's complaints, Continuance of care, Re-evaluation by your physician. kb
[2017-11-15 19:56] VITALS: TEMP 98.5
[2017-11-15 19:59] VITALS: BP 125/83; O2SAT 100
== END 2017-11-15 19:52 | disposition home or self-care (01) ==
LOC: ER 17:48
DX: G43.909 Migraine, unspecified, not intractable, without status migrainosus (principal); Z88.0 Allergy status to penicillin; Z88.1 Allergy status to other antibiotic agents; Z88.5 Allergy status to narcotic agent; Z88.8 Allergy status to other drugs, medicaments and biological substances
CPT/HCPCS: 96361; 96374; 96375; 99283; J2765; J7030

== ENCOUNTER 2018-04-21 17:38 | Emergency (ER) | payer OTHER ==
--- OUTSIDE RECORDS SUMMARY | 2018-04-21 17:42 | XMS REPORT | Clinical Summary ---
:1980 Author Organization [facility] Address [address] [place] [id number] Care Team Providers Name Role Phone Robert Zhang MD Primary Care Provider Allergies Active Allergy Reactions Severity Noted Date Comments Cephalexin High 02/17/2017 Penicillins High 02/17/2017 Prednisolone High 02/17/2017 Medications Medication Sig Dispensed Refills Start Date End Date Status metoprolol succinate XL TK 1 T PO ONCE D 0 02/14/2017 Active (TOPROL-XL) 25 mg 24 hr tablet meloxicam (MOBIC) 7.5 TK 1 T PO D 1 02/16/2017 Active mg tablet Active Problems No known active problems Family History Medical History Relation Name Comments Diabetes Father Heart disease Father Kidney disease Father Skin cancer Father Stroke Father Relation Name Status Comments Father Social History Tobacco Use Types Packs/Day Years Used Date Never Smoker Alcohol Use Drinks/Week oz/Week Comments Yes Sex Assigned at Date Recorded Not on file Job Start Date Occupation Industry Not on file Not on file Not on file Travel History Travel Start Travel End No recent travel history available. Last Filed Vital Signs Not on file Plan of Treatment Health Maintenance Due Date Last Done Comments CERVICAL CANCER SCREENING 06/11/2000 INFLUENZA VACCINE 11/01/2017 Results Not on fileafter 04/20/2017 Insurance Payer Benefit Plan / Group Subscriber ID Type Phone Address [employer] OPEN ACCESS/NETWORK xxxxxxxxxxx HMO Advance Directives Patient has advance care planning documents on file. For more information, please contact:[address] [address]
[2018-04-21] MEDS ORDERED: DIPHENHYDRAMINE 50 MG/ML VIAL ONE (18:24)
[2018-04-21] MEDS ORDERED: NA CHLORIDE 0.9% 50 ML IV ONE (18:24)
[2018-04-21] MEDS ORDERED: METOCLOPRAMIDE 10 MG/2mL INJ ONE (18:24)
[2018-04-21] MEDS ORDERED: ONDANSETRON 4 MG/2 ML VIAL ONE (18:24)
[2018-04-21] MEDS ORDERED: KETOROLAC 30 MG/ML INJ ONE (18:24)
[2018-04-21 18:41] LABS: Absolute Lymphocytes (CBC) 1.7 K/uL (0.7-4.9); Absolute Monocytes 0.3 K/uL (0.1-1.3); Absolute Neutrophil 4.8 K/uL (1.8-8.0); Basophils % 1.1 % (0-1.3); Eosinophils % 1.9 % (0-4.4); Hematocrit 39.7 % (36.0-45.0); Lymphocytes % 23.9 % (15.3-44.8); MPV 9.3 fL (7.6-11.3); Monocytes % 4.9 % (3.3-12.3); RBC Red Blood Cell Count 4.47 M/uL (3.86-4.86)
[2018-04-21 18:45] LABS: Protime INR 0.99
[2018-04-21 19:04] LABS: Urine Blood NEGATIVE (NEG); Urine Glucose NEGATIVE (NEG); Urine Protein NEGATIVE (NEG); Urine Specific Gravity 1.015 (1.005-1.030)
[2018-04-21 19:05] LABS: ALT/SGPT 23 U/L (12-78); AST/SGOT 18 U/L (15-37); Albumin 3.8 g/dL (3.4-5.0); Alkaline Phosphatase 77 U/L (45-117); BUN Blood Urea Nitrogen 15 mg/dL (7-18); Bicarbonate 26 mmol/L (21-32); Bilirubin Direct < 0.1 mg/dL (0-0.2); Bilirubin Total 0.3 mg/dL (0.2-1.0); Glucose Level 85 mg/dL (74-106); Magnesium 2.1 mg/dL (1.8-2.4); NT PRO-BNP 307 pg/mL (<125); Potassium 3.4 mmol/L (3.5-5.1); Protein, Total 7.1 g/dL (6.4-8.2); Sodium Level 141 mmol/L (136-145); Troponin (Emerg Dept Use Only) < 0.02 ng/mL (0.0-0.045)
[2018-04-21] MEDS ORDERED: POTASSIUM 25 MEQ EFFERV TAB ONE (19:50)
--- NOTE | 2018-04-21 19:56 | RAD REPORT ---
EXAM DESCRIPTION: Florina Single View04/21/2018 6:40 pm CLINICAL HISTORY: Chest pain COMPARISON: 2017 FINDINGS: The lungs appear clear of acute infiltrate. The heart is normal size IMPRESSION: No acute abnormalities displayed
--- NOTE | 2018-04-21 20:32 | ER ---
Nurse's Notes [facility] Unit Name: Massiel Hood Age: 37 yrs Sex: Female : 1980 Arrival Date: 04/21/2018 Time: 17:40 Bed 28 Private MD: Robert Zhang V Diagnosis: Headache;Other chest pain Presentation: 04/21 17:51 Presenting complaint: Patient states: I have had a bad headache for the last three la1 days, jaw pain for one day, and chest tightness today. Transition of care: patient was not received from another setting of care. Onset of symptoms was April 21, 2018. Risk Assessment: Do you want to hurt yourself or someone else? Patient reports no desire to harm self or others. Initial Sepsis Screen: Does the patient meet any 2 criteria? No. Patient's initial sepsis screen is negative. Does the patient have a suspected source of infection? No. Patient's initial sepsis screen is negative. Care prior to arrival: None. 17:51 Method Of Arrival: Ambulatory la1 17:51 Acuity: HORACIO 3 la1 Triage Assessment: 19:01 Headache History: The patient has had previous headaches and this one is similar to mg2 previous episodes. General: Appears in no apparent distress. comfortable, Behavior is calm, cooperative. Pain: Complains of pain in head Pain does not radiate. Pain currently is 4 out of 10 on a pain scale. Also complains of inability to concentrate. 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 - Social history:: Smoking status: Patient/guardian denies using tobacco, Patient uses. - Ebola Screening: : No symptoms or risks identified at this time. Screenin:43 Abuse screen: Denies threats or abuse. Denies injuries from another. Nutritional mg2 screening: No deficits noted. Tuberculosis screening: No symptoms or risk factors identified. Fall Risk IV access (20 points). Assessment: 18:58 General: Appears in no apparent distress. comfortable, Behavior is calm, cooperative. mg2 Pain: Complains of pain in head, chest Pain radiates to jaw Quality of pain is described as aching, Pain began gradually, Is intermittent. Neuro: Level of Consciousness is awake, alert, obeys commands, Oriented to person, place, time, situation. Cardiovascular: Capillary refill < 3 seconds Patient's skin is warm and dry. Cardiovascular: Reports chest pain. Respiratory: Airway is patent Respiratory effort is even, unlabored, Respiratory pattern is regular, symmetrical. GI: No signs and/or symptoms were reported involving the gastrointestinal system. : No signs and/or symptoms were reported regarding the genitourinary system. EENT: No signs and/or symptoms were reported regarding the EENT system. Derm: Skin is intact, is healthy with good turgor, Skin is pink, warm \T\ dry. normal. Musculoskeletal: No signs and/or symptoms reported regarding the musculoskeletal system. Vital Signs: 17:53 BP 145 / 90; Pulse 78; Resp 18; Temp 98.9; Pulse Ox 98% on R/A; Weight 77.11 kg; Height la1 5 ft. 5 in. (165.10 cm); 20:43 BP 130 / 78; Pulse 80; Resp 18; Pulse Ox 100% on R/A; Pain 0/10; mg2 17:53 Body Mass Index 28.29 (77.11 kg, 165.10 cm) la1 ED Course: 17:40 Patient arrived in ED. rg4 17:41 Robert Zhang MD is Private Physician. rg4 17:51 Triage completed. la1 17:53 Arm band placed on right wrist. la1 17:54 Jordan Mon MD is Attending Physician. cee 17:54 Jordan Roberto PA is PHCP. cp 18:11 Won Andujar, CATRACHITA is Primary Nurse. mg2 18:42 No provider procedures requiring assistance completed. Inserted saline lock: 20 gauge mg2 in right antecubital area, using aseptic technique. Blood collected. 18:51 XRAY Chest (1 view) In Process Unspecified. EDMS 19:01 Patient has correct armband on for positive identification. Pulse ox on. NIBP on. mg2 20:44 IV discontinued, intact, bleeding controlled, No redness/swelling at site. Pressure mg2 dressing applied. Administered Medications: 18:41 Drug: Benadryl 25 mg Route: IVP; Site: right antecubital; mg2 19:47 Follow up: Response: No adverse reaction; Marked relief of symptoms mg2 18:41 Drug: Reglan 10 mg Route: IVP; Site: right antecubital; mg2 19:47 Follow up: Response: No adverse reaction; Marked relief of symptoms mg2 18:41 Drug: Zofran 4 mg Route: IVP; Site: right antecubital; mg2 19:47 Follow up: Response: No adverse reaction; Marked relief of symptoms mg2 18:57 CANCELLED (Physician Discretion): TORadol 30 mg IM once; if test negative mg2 18:57 Drug: TORadol 30 mg Route: IVP; Site: right antecubital; mg2 19:46 Follow up: Response: No adverse reaction; Marked relief of symptoms mg2 19:46 Drug: Potassium Effervescent Tablet 25 mEq Route: PO; mg2 20:31 Follow up: Response: No adverse reaction mg2 Outcome: 20:31 Discharge ordered by MD. diaz 20:44 Discharged to home ambulatory. mg2 20:44 Condition: stable 20:44 Discharge instructions given to patient, Instructed on discharge instructions, follow up and referral plans. medication usage, Demonstrated understanding of instructions, follow-up care, medications, Prescriptions given X 3. 20:45 Patient left the ED. mg2 Signatures: Dispatcher [employer] EDMS Jordan Mon MD MD cha Attema, Lee, RN RN la1 Jordan Roberto PA PA cp Garcia, Rubi rg4 Won Andujar RN RN mg2
--- NOTE | 2018-04-21 20:32 | EDPHYS ---
Physician Documentation [facility] Name: Massiel Hood Age: 37 yrs Sex: Female : 1980 Arrival Date: 04/21/2018 Time: 17:40 Bed 28 Private MD: Robert Zhang V ED Physician Jordan Mon HPI: 04/21 18:25 This 37 yrs old Female presents to ER via Ambulatory with complaints of cp Headache, Chest Tightness, Jaw Pain. 18:25 The patient complains of pain to the top of head and forehead. cp 18:25 The patient describes the headache as aching. Onset: The symptoms/episode cp began/occurred 3 day(s) ago. Associated signs and symptoms: Pertinent positives: jaw pain, chest pain, Pertinent negatives: fever, neck stiffness, paresthesias, vomiting. Severity of symptoms: in the emergency department the pain is unchanged, despite home interventions. Headache History: The patient has had previous headaches and this one is similar to previous episodes. 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 - Social history:: Smoking status: Patient/guardian denies using tobacco, Patient uses. - Ebola Screening: : No symptoms or risks identified at this time. ROS: 18:30 Constitutional: Negative for body aches, chills, fever, poor PO intake. cp 18:30 Eyes: Negative for injury, pain, redness, and discharge. cp 18:30 ENT: Negative for drainage from ear(s), ear pain, sore throat, difficulty swallowing, difficulty handling secretions. 18:30 Neck: Negative for pain with movement, pain at rest, stiffness, swollen nodes. 18:30 Cardiovascular: Positive for chest pain, Negative for edema, palpitations. 18:30 Respiratory: Negative for cough, shortness of breath, wheezing. 18:30 Abdomen/GI: Negative for abdominal pain, vomiting, diarrhea, constipation, anorexia. 18:30 Back: Negative for pain at rest, pain with movement, radiated pain. 18:30 : Negative for urinary symptoms. 18:30 Skin: Negative for cellulitis, rash. 18:30 Neuro: Positive for headache, Negative for altered mental status, weakness. 18:30 All other systems are negative. Exam: 18:40 Constitutional: The patient appears in no acute distress, alert, awake, cp non-diaphoretic, non-toxic, well developed, well nourished. 18:40 Head/Face: Normocephalic, atraumatic. Eyes: Pupils equal round and reactive to light, cp extra-ocular motions intact. Lids and lashes normal. Conjunctiva and sclera are non-icteric and not injected. Cornea within normal limits. Periorbital areas with no swelling, redness, or edema. ENT: Nares patent. No nasal discharge, no septal abnormalities noted. Tympanic membranes are normal and external auditory canals are clear. Oropharynx with no redness, swelling, or masses, exudates, or evidence of obstruction, uvula midline. Mucous membranes moist. 18:40 Neck: External neck: tenderness, that is mild, , ROM/movement: is normal, is supple, no range of motions limitations, no meningismus, no nuchal rigidity. 18:40 Chest/axilla: Inspection: normal, Palpation: is normal, no crepitus, no tenderness. 18:40 Cardiovascular: Rate: normal, Rhythm: regular, Heart sounds: murmur, not appreciated. 18:40 Respiratory: the patient does not display signs of respiratory distress, Respirations: normal, no use of accessory muscles, no retractions, no splinting, no tachypnea, labored breathing, is not present, Breath sounds: are clear throughout, no decreased breath sounds, no stridor, no wheezing. 18:40 Abdomen/GI: Inspection: abdomen appears normal, Bowel sounds: active, all quadrants, Palpation: abdomen is soft and non-tender, in all quadrants. 18:40 Back: pain, is absent, ROM is normal. 18:40 Skin: cellulitis, is not appreciated, no rash present. Vital Signs: 17:53 BP 145 / 90; Pulse 78; Resp 18; Temp 98.9; Pulse Ox 98% on R/A; Weight 77.11 kg; Height la1 5 ft. 5 in. (165.10 cm); 20:43 BP 130 / 78; Pulse 80; Resp 18; Pulse Ox 100% on R/A; Pain 0/10; mg2 17:53 Body Mass Index 28.29 (77.11 kg, 165.10 cm) la1 MDM: 17:54 Patient medically screened. cee 19:00 Differential diagnosis: cluster headache, meningitis, migraine, otitis, sinusitis, cp subarachnoid bleed, subdural hematoma, trigeminal neuralgia, acute [place]. 20:30 Data reviewed: vital signs, nurses notes, lab test result(s), EKG, radiologic studies, cp plain films, and as a result, I will discharge patient. 20:30 Test interpretation: by ED physician or midlevel provider: ECG, plain radiologic cp studies. Counseling: I had a detailed discussion with the patient and/or guardian regarding: the historical points, exam findings, and any diagnostic results supporting the discharge/admit diagnosis, lab results, radiology results, to return to the emergency department if symptoms worsen or persist or if there are any questions or concerns that arise at home. Response to treatment: the patient's symptoms have markedly improved after treatment, and as a result, I will discharge patient. ED course: VSS. Patient reports headache and chest pain markedly improved. Will discharge to home for continued monitoring. 04/21 18:11 Order name: Basic Metabolic Panel; Complete Time: 19:27 cp 04/21 19:27 Interpretation: Normal except: K 3.4; GFR 75; CA 8.4. 04/21 18:11 Order name: CBC with Diff; Complete Time: 19:27 cp 04/21 18:11 Order name: LFT's; Complete Time: 19:27 cp 04/21 18:11 Order name: Magnesium; Complete Time: 19:27 cp 04/21 18:11 Order name: NT PRO-BNP; Complete Time: 19:27 cp 04/21 18:11 Order name: PT-INR; Complete Time: 19:27 cp 04/21 18:11 Order name: Troponin (emerg Dept Use Only); Complete Time: 19:27 cp 04/21 18:11 Order name: XRAY Chest (1 view); Complete Time: 20:26 cp 04/21 20:26 Interpretation: Report review. 04/21 18:30 Order name: Urine Dipstick--Ancillary (enter results) 04/21 18:30 Order name: Urine --Ancillary (enter results) 04/21 18:11 Order name: EKG; Complete Time: 18:13 cp 04/21 18:11 Order name: Cardiac monitoring; Complete Time: 18:42 cp 04/21 18:11 Order name: EKG - Nurse/Tech; Complete Time: 18:42 cp 04/21 18:11 Order name: IV Saline Lock; Complete Time: 18:42 cp 04/21 18:11 Order name: Labs collected and sent; Complete Time: 18:42 cp 04/21 18:11 Order name: O2 Per Protocol; Complete Time: 18:42 cp 04/21 18:11 Order name: O2 Sat Monitoring; Complete Time: 18:42 cp 04/21 18:11 Order name: Urine Dipstick-Ancillary (obtain specimen); Complete Time: 18:42 cp 04/21 18:11 Order name: Urine Test (obtain specimen); Complete Time: 18:42 cp Administered Medications: 18:41 Drug: Benadryl 25 mg Route: IVP; Site: right antecubital; mg2 19:47 Follow up: Response: No adverse reaction; Marked relief of symptoms mg2 18:41 Drug: Reglan 10 mg Route: IVP; Site: right antecubital; mg2 19:47 Follow up: Response: No adverse reaction; Marked relief of symptoms mg2 18:41 Drug: Zofran 4 mg Route: IVP; Site: right antecubital; mg2 19:47 Follow up: Response: No adverse reaction; Marked relief of symptoms mg2 18:57 CANCELLED (Physician Discretion): TORadol 30 mg IM once; if test negative mg2 18:57 Drug: TORadol 30 mg Route: IVP; Site: right antecubital; mg2 19:46 Follow up: Response: No adverse reaction; Marked relief of symptoms mg2 19:46 Drug: Potassium Effervescent Tablet 25 mEq Route: PO; mg2 20:31 Follow up: Response: No adverse reaction mg2 Disposition: 04/21/18 20:31 Discharged to Home. Impression: Headache, Other chest pain. - Condition is Stable. - Discharge Instructions: Nonspecific Chest Pain, Migraine Headache, Stress and Stress Management. - Prescriptions for Fiorinal 50- 325-40 mg Oral Capsule - take 1 capsule by ORAL route every 4 hours As needed - not to exceed 6 capsules per day; 20 capsule. Naprosyn 500 mg Oral Tablet - take 1 tablet by ORAL route 2 times per day take with food; 20 tablet. Zofran 4 mg Oral Tablet - take 1 tablet by ORAL route every 12 hours As needed; 20 tablet. - Medication Reconciliation Form, Thank You Letter, Antibiotic Education, Prescription Opioid Use, Work release form form. - Follow up: Private Physician; When: 2 - 3 days; Reason: Recheck today's complaints. - Problem is new. - Symptoms have improved. Addendum: 04/23/2018 07:50 Co-signature as Attending Physician, Jordan Mon MD I agree with the assessment and c stewart plan of care. Signatures: Dispatcher [employer] EDJordan Madrid MD MD cha Attema, Lee RN RN la1 Jordan Roberto PA PA cp Won Andujar RN RN mg2 Corrections: (The following items were deleted from the chart) 04/21 18:57 18:11 TORadol 30 mg IM once; if test negative ordered. cp mg2 19:27 19:27 Normal except: K 3.4; GFR 75. cp cp 20:45 20:31 04/21/2018 20:31 Discharged to Home. Impression: Headache; Other chest pain. mg2 Condition is Stable. Forms are Medication Reconciliation Form, Thank You Letter, Antibiotic Education, Prescription Opioid Use. Follow up: Private Physician; When: 2 - 3 days; Reason: Recheck today's complaints. Problem is new. Symptoms have improved. cp
[2018-04-21 21:00] VITALS: TEMP 98.9
[2018-04-21 21:02] VITALS: BP 130/78; O2SAT 100
--- NOTE | 2018-04-22 11:24 | EKG ---
Test Date: 2018-04-21 Test Time: 18:01:31 Dental Appliance Mechanic: MG MEASUREMENT RESULTS: Intervals: Rate: 64 VA: 128 QRSD: 80 QT: 388 QTc: 400 [place]: P: 58 VA: 128 QRS: 59 T: 25 INTERPRETIVE STATEMENTS: Normal sinus rhythm Normal ECG Compared to ECG 02/07/2017 14:49:03 No significant changes Electronically Signed On 04-22-18 11:23:34 COMPONENT ENGINEER by Felix Sesay
== END 2018-04-21 20:45 | disposition home or self-care (01) ==
LOC: ER 17:38
DX: R51 Headache (principal); R07.89 Other chest pain; Z88.0 Allergy status to penicillin; Z88.1 Allergy status to other antibiotic agents
CPT/HCPCS: 36415; 71045; 80048; 80076; 81003; 81025; 83735; 83880; 84484; 85025; 85610; 93005; J2405; J2765

== ENCOUNTER 2018-11-27 20:36 | Emergency (ER) | payer OTHER ==
--- OUTSIDE RECORDS SUMMARY | 2018-11-27 20:39 | XMS REPORT | Clinical Summary ---
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
--- OUTSIDE RECORDS SUMMARY | 2018-11-27 20:39 | XMS REPORT | Summary of Care ---
:1980 Author Name TRISTA KIDD M.D. Address [place] Physicians Unavailable , Care Team Providers Name Role Phone PHILOMENA, TRISTA Unavailable Unavailable Functional Status Name Dates Details Functional status health issues are not documented Status: Name Dates Details Cognitive status health issues are not documented Status: Problems Name Dates Details Strain of lumbar region, initial encounter (847.2, S39.012A) Status: Active De Quervain's tenosynovitis, right (727.04, M65.4) Status: Active De Quervain's tenosynovitis, left (727.04, M65.4) Status: Active Medications Name Dates Details No Reported Medications Refills: 0 R.N.Active Allergies and Adverse Reactions Name Dates Details Keflex (Allergy) Status: Active Penicillins (Allergy) Status: Active predniSONE (Allergy) Status: Active Past Medical History Name Dates Details History of back pain (V13.59, Z87.39) Status: Resolved Procedures Procedure Dates Details MR Wrist wo contrast [id number] Date: 22-Jun-2018 History of Knee surgery Completed Immunization Name Dates Details Immunizations not documented Family History Name Dates Details Family history of diabetes mellitus (V18.0, Z83.3) Comments: Family History Status: Active Family history of Heart trouble (429.9, I51.9) Comments: Family History Status: Active Family history of Liver dysfunction (573.9, K76.89) Comments: Family History Status: Active Family history of hypertension (V17.49, Z82.49) Comments: Family History Status: Active Family history of cerebrovascular accident (CVA) (V17.1, Z82.3) Comments: Family History Status: Active Family history of malignant neoplasm (V16.9, Z80.9) Comments: Family History Status: Active Social History Name Dates Details Unknown if ever smoked Vital Signs Date Test Result Details No Known Vitals to report Results Date Description Value Details [id number] [U] XR HAND MIN 3 VWS BILATERAL XR HAND MIN 3 VWS BILATERAL Images acquired, not reported on this accession number. [id number] MR Wrist wo contrast [id number] Wrist wo contrast MR Cancel Reason: Ordered In Error Plan of Care Name Dates Details Planned Observations Planned Goals not documented Instructions Name Dates Details Instructions not documented Encounters Appointment; TRISTA KIDD M.D. On: 10-Jul-2017 8:30 Encounter Diagnosis: Problem not documented Appointment; TRISTA KIDD M.D. On: 22-Jun-2018 8:45 Encounter Diagnosis: Problem not documented Appointment; TRISTA KIDD M.D. On: 06-Jul-2018 11:45 Encounter Diagnosis: Problem not documented
--- OUTSIDE RECORDS SUMMARY | 2018-11-27 20:39 | XMS REPORT ---
:1980 [facility] Address [address] [place] [address] [address] [place] [address] Care Team Providers Name Role Phone Unavailable Unavailable Unavailable Problems This patient has no known problems. Allergies, Adverse Reactions, Alerts This patient has no known allergies or adverse reactions. Medications This patient has no known medications.
[2018-11-27 21:15] LABS: Absolute Lymphocytes (CBC) 1.9 K/uL (0.7-4.9); Basophils % 1.1 % (0-1.3); Hematocrit 42.5 % (36.0-45.0); Lymphocytes % 28.3 % (15.3-44.8); MPV 9.2 fL (7.6-11.3)
[2018-11-27 21:52] LABS: ALT/SGPT 17 U/L (12-78); AST/SGOT 10 U/L (15-37); Albumin 3.9 g/dL (3.4-5.0); Alkaline Phosphatase 72 U/L (45-117); BUN Blood Urea Nitrogen 16 mg/dL (7-18); Bicarbonate 26 mmol/L (21-32); Bilirubin Direct 0.1 mg/dL (0-0.2); Bilirubin Total 0.5 mg/dL (0.2-1.0); Glucose Level 86 mg/dL (74-106); Magnesium 2.2 mg/dL (1.8-2.4); NT PRO-BNP 94 pg/mL (<125); Potassium 3.9 mmol/L (3.5-5.1); Protein, Total 7.5 g/dL (6.4-8.2); Sodium Level 142 mmol/L (136-145); Troponin (Emerg Dept Use Only) < 0.02 ng/mL (0.0-0.045)
--- NOTE | 2018-11-27 22:08 | ER ---
Nurse's Notes [facility] Name: Massiel Hood Age: 38 yrs Sex: Female : 1980 Arrival Date: 11/27/2018 Time: 20:39 Bed 8 Private MD: Diagnosis: Chest pain, unspecified;Essential (primary) hypertension Presentation: 11/27 20:42 Presenting complaint: Patient states: I used to take HCTZ for my BP but doctor said I la1 could stop a few months ago because he thought it may have just been stress induced. I have been under a lot of stress lately and feeling lightheaded. I checked my BP on the way home and it was high at 150s over 100s and I feel some pressure in my chest. Transition of care: patient was not received from another setting of care. Onset of symptoms was November 27, 2018. Risk Assessment: Do you want to hurt yourself or someone else? Patient reports no desire to harm self or others. Initial Sepsis Screen: Does the patient meet any 2 criteria? No. Patient's initial sepsis screen is negative. Does the patient have a suspected source of infection? No. Patient's initial sepsis screen is negative. Care prior to arrival: None. 20:42 Method Of Arrival: Ambulatory la1 20:42 Acuity: HORACIO 3 la1 Triage Assessment: 21:00 General: Appears in no apparent distress. uncomfortable, Behavior is calm, cooperative, rr5 appropriate for age. Historical: - Allergies: 20:44 Keflex; la1 20:44 PENICILLINS; la1 20:44 Prednisone; la1 - PMHx: 20:44 Hypertension; Migraines; la1 - Immunization history:: Adult Immunizations up to date. - Social history:: Smoking status: Patient/guardian denies using tobacco. - Ebola Screening: : No symptoms or risks identified at this time. - Family history:: not pertinent. Screenin:00 Abuse screen: Denies threats or abuse. Denies injuries from another. Nutritional rr5 screening: No deficits noted. Tuberculosis screening: No symptoms or risk factors identified. Fall Risk IV access (20 points). Total Nuñez Fall Scale indicates No Risk (0-24 pts). Assessment: 21:00 General: Appears in no apparent distress. uncomfortable, Behavior is calm, cooperative, rr5 appropriate for age, Reports she feels I am stress. 21:00 Pain: Complains of pain in chest Pain does not radiate. Pain currently is 8 out of 10 rr5 on a pain scale. Quality of pain is described as pressure, Pain began gradually, Is intermittent. Neuro: Level of Consciousness is awake, alert, obeys commands, Oriented to person, place, time, situation, Appropriate for age Moves all extremities. Full function Gait is steady, Speech is normal, Facial symmetry appears normal, Reports light headed and headache. Cardiovascular: Reports chest pressure Capillary refill < 3 seconds Patient's skin is warm and dry. Respiratory: Airway is patent Respiratory effort is even, unlabored, Respiratory pattern is regular, symmetrical. GI: No signs and/or symptoms were reported involving the gastrointestinal system. : No signs and/or symptoms were reported regarding the genitourinary system. EENT: No signs and/or symptoms were reported regarding the EENT system. Derm: Skin is intact, Skin temperature is warm. Musculoskeletal: Circulation, motion, and sensation intact. Capillary refill < 3 seconds. 22:00 Reassessment: Patient appears in no apparent distress at this time. Patient and/or rr5 family updated on plan of care and expected duration. Pain level reassessed. Patient is alert, oriented x 3, equal unlabored respirations, skin warm/dry/pink. awaiting for results. 23:00 Reassessment: Patient appears in no apparent distress at this time. Patient is alert, rr5 oriented x 3, equal unlabored respirations, skin warm/dry/pink. discharge instruction given and explained without complaints made, verbalized understanding. Vital Signs: 20:44 BP 141 / 94; Pulse 85; Resp 16; Temp 97.1; Pulse Ox 100% on R/A; Weight 77.11 kg; la1 Height 5 ft. 5 in. (165.10 cm); 22:00 BP 133 / 70; Pulse 80; Resp 17; Pulse Ox 99% on R/A; rr5 23:00 BP 125 / 79; Pulse 79; Resp 16; Pulse Ox 100% on R/A; rr5 20:44 Body Mass Index 28.29 (77.11 kg, 165.10 cm) la1 ED Course: 20:39 Patient arrived in ED. mr 20:44 Triage completed. la1 20:44 Arm band placed on right wrist. la1 20:48 Jordan Mon MD is Attending Physician. [facility] 21:00 Patient has correct armband on for positive identification. Bed in low position. Call rr5 light in reach. Side rails up X2. grapple operator on. Pulse ox on. NIBP on. 21:00 Inserted saline lock: 20 gauge in right antecubital area, using aseptic technique. rr5 ,using aseptic technique. by [place] traffic signal technician Blood collected. 21:04 XRAY Chest (1 view) In Process Unspecified. EDMS 21:22 Yeyo Boucher, RN is Primary Nurse. rr5 22:07 Felix Sesay MD is Referral Physician. [facility] 23:00 No provider procedures requiring assistance completed. IV discontinued, intact, rr5 bleeding controlled, No redness/swelling at site. Pressure dressing applied. Patient maintains SpO2 saturation greater than 95% on room air. Administered Medications: 22:45 Drug: Aspirin 81 mg Route: PO; rr5 23:00 Follow up: Response: No adverse reaction rr5 22:45 Drug: Lisinopril 10 mg Route: PO; rr5 23:00 Follow up: Response: No adverse reaction rr5 22:45 Drug: Tylenol 650 mg Route: PO; rr5 23:00 Follow up: Response: Medication administered at discharge. rr5 Outcome: 22:07 Discharge ordered by . cee 23:15 Discharged to home ambulatory. rr5 23:15 Condition: stable 23:15 Discharge instructions given to patient, Instructed on discharge instructions, follow up and referral plans. medication usage, Demonstrated understanding of instructions, follow-up care, medications, Prescriptions given X 2. 23:16 Patient left the ED. rr5 Signatures: Dispatcher [employer] EDCA Jordan Mon MD MD cha Rivera, Mary Kevyn Hammer RN CATRACHITA la1 Yeyo Boucher, CATRACHITA RN rr5
--- NOTE | 2018-11-27 22:09 | EDPHYS ---
Physician Documentation [facility] Name: Massiel Hood Age: 38 yrs Sex: Female : 1980 Arrival Date: 11/27/2018 Time: 20:39 Bed 8 Private MD: ED Physician Jordan Mon HPI: 11/27 20:52 This 38 yrs old Female presents to ER via Ambulatory with complaints of High cee Blood Pressure, Chest Pressure, Headache. 20:52 The patient has elevated blood pressure and discovered this at home. Onset: The cee symptoms/episode began/occurred just prior to arrival, this morning. Modifying factors: The symptoms are aggravated by activity, The symptoms are alleviated by remaining still. Associated signs and symptoms: Pertinent positives: headache. Severity of symptoms: At its worst the blood pressure was moderate, in the emergency department the blood pressure is unchanged. The patient has experienced similar episodes in the past, a few times. Historical: - Allergies: 20:44 Keflex; la1 20:44 PENICILLINS; la1 20:44 Prednisone; la1 - PMHx: 20:44 Hypertension; Migraines; la1 - Immunization history:: Adult Immunizations up to date. - Social history:: Smoking status: Patient/guardian denies using tobacco. - Ebola Screening: : No symptoms or risks identified at this time. - Family history:: not pertinent. ROS: 20:52 Constitutional: Negative for fever, chills, and weight loss, Eyes: Negative for injury, cee pain, redness, and discharge, ENT: Negative for injury, pain, and discharge, Neck: Negative for injury, pain, and swelling, Respiratory: Negative for shortness of breath, cough, wheezing, and pleuritic chest pain, Abdomen/GI: Negative for abdominal pain, nausea, vomiting, diarrhea, and constipation, Back: Negative for injury and pain, : Negative for injury, bleeding, discharge, and swelling, MS/Extremity: Negative for injury and deformity, Skin: Negative for injury, rash, and discoloration, Psych: Negative for depression, anxiety, suicide ideation, homicidal ideation, and hallucinations, Allergy/Immunology: Negative for hives, rash, and allergies, Endocrine: Negative for neck swelling, polydipsia, polyuria, polyphagia, and marked weight changes, Hematologic/Lymphatic: Negative for swollen nodes, abnormal bleeding, and unusual bruising. 20:52 Cardiovascular: Positive for chest pain. 20:52 MS/extremity: Positive for pain, tenderness, of the right hand. Exam: 20:52 Constitutional: This is a well developed, well nourished patient who is awake, alert, cee and in no acute distress. Head/Face: Normocephalic, atraumatic. Eyes: Pupils equal round and reactive to light, extra-ocular motions intact. Lids and lashes normal. Conjunctiva and sclera are non-icteric and not injected. Cornea within normal limits. Periorbital areas with no swelling, redness, or edema. ENT: Nares patent. No nasal discharge, no septal abnormalities noted. Tympanic membranes are normal and external auditory canals are clear. Oropharynx with no redness, swelling, or masses, exudates, or evidence of obstruction, uvula midline. Mucous membranes moist. Neck: Trachea midline, no thyromegaly or masses palpated, and no cervical lymphadenopathy. Supple, full range of motion without nuchal rigidity, or vertebral point tenderness. No Meningismus. Chest/axilla: Normal chest wall appearance and motion. Nontender with no deformity. No lesions are appreciated. Cardiovascular: Regular rate and rhythm with a normal S1 and S2. No gallops, murmurs, or rubs. Normal PMI, no JVD. No pulse deficits. Respiratory: Lungs have equal breath sounds bilaterally, clear to auscultation and percussion. No rales, rhonchi or wheezes noted. No increased work of breathing, no retractions or nasal flaring. Abdomen/GI: Soft, non-tender, with normal bowel sounds. No distension or tympany. No guarding or rebound. No evidence of tenderness throughout. Back: No spinal tenderness. No costovertebral tenderness. Full range of motion. Skin: Warm, dry with normal turgor. Normal color with no rashes, no lesions, and no evidence of cellulitis. MS/ Extremity: Pulses equal, no cyanosis. Neurovascular intact. Full, normal range of motion. Neuro: Awake and alert, GCS 15, oriented to person, place, time, and situation. Cranial nerves II-XII grossly intact. Motor strength 5/5 in all extremities. Sensory grossly intact. Cerebellar exam normal. Normal gait. Psych: Awake, alert, with orientation to person, place and time. Behavior, mood, and affect are within normal limits. 20:52 Musculoskeletal/extremity: Extremities: all appear grossly normal, with no appreciated pain with palpation, grossly normal except: ROM: full active range of motion, full passive range of motion, Circulation is intact in all extremities. Sensation intact. Compartment Syndrome exam of affected extremity: is normal. DVT Exam: No signs of deep vein thrombosis. no pain, no swelling, no tenderness, negative Homans' sign noted on exam, no appreciated bluish discoloration, no erythema, no increased warmth. Vital Signs: 20:44 BP 141 / 94; Pulse 85; Resp 16; Temp 97.1; Pulse Ox 100% on R/A; Weight 77.11 kg; la1 Height 5 ft. 5 in. (165.10 cm); 22:00 BP 133 / 70; Pulse 80; Resp 17; Pulse Ox 99% on R/A; rr5 23:00 BP 125 / 79; Pulse 79; Resp 16; Pulse Ox 100% on R/A; rr5 20:44 Body Mass Index 28.29 (77.11 kg, 165.10 cm) la1 MDM: 20:48 Patient medically screened. [facility] 20:53 Data reviewed: vital signs, nurses notes, lab test result(s), EKG, radiologic studies, cee plain films. 11/27 20:52 Order name: Basic Metabolic Panel; Complete Time: 22:05 [facility] 11/27 20:52 Order name: CBC with Diff; Complete Time: 22:05 [facility] 11/27 20:52 Order name: LFT's; Complete Time: 22:05 [facility] 11/27 20:52 Order name: Magnesium; Complete Time: 22: [facility] 11/27 20:52 Order name: NT PRO-BNP; Complete Time: 22:05 [facility] 11/27 20:52 Order name: Troponin (emerg Dept Use Only); Complete Time: 22:05 [facility] 11/27 20:52 Order name: XRAY Chest (1 view) [facility] 11/27 20:52 Order name: EKG; Complete Time: 20:53 [facility] 11/27 20:52 Order name: Cardiac monitoring; Complete Time: 21:14 [facility] 11/27 20:52 Order name: EKG - Nurse/Tech; Complete Time: 21:14 [facility] 11/27 20:52 Order name: IV Saline Lock; Complete Time: 21:14 [facility] 11/27 20:52 Order name: Labs collected and sent; Complete Time: 21:14 [facility] 11/27 20:52 Order name: O2 Per Protocol; Complete Time: : [facility] 11/27 20:52 Order name: O2 Sat Monitoring; Complete Time: 21:14 [facility] Administered Medications: 22:45 Drug: Aspirin 81 mg Route: PO; rr5 23:00 Follow up: Response: No adverse reaction rr5 22:45 Drug: Lisinopril 10 mg Route: PO; rr5 23:00 Follow up: Response: No adverse reaction rr5 22:45 Drug: Tylenol 650 mg Route: PO; rr5 23:00 Follow up: Response: Medication administered at discharge. rr5 Disposition: 11/27/18 22:07 Discharged to Home. Impression: Chest pain, unspecified, Essential (primary) hypertension. - Condition is Stable. - Discharge Instructions: Nonspecific Chest Pain, Hypertension, Nonspecific Chest Pain, [id number], Hypertension, [id number], How to Take Your Blood Pressure, [id number], Aspirin and Your Heart, Managing Your Hypertension. - Prescriptions for Xanax 0.5 mg Oral Tablet - take 1 tablet by ORAL route every 8 hours As needed; 15 tablet. Lisinopril 5 mg Oral Tablet - take 1 tablet by ORAL route once daily; 20 tablet. - Medication Reconciliation Form, Thank You Letter, Antibiotic Education, Prescription Opioid Use form. - Follow up: Private Physician; When: 2 - 3 days; Reason: Recheck today's complaints, Continuance of care, Re-evaluation by your physician. Follow up: Felix Sesay MD; When: 2 - 3 days; Reason: Recheck today's complaints, Re-evaluation by your physician. - Problem is new. - Symptoms have improved. Signatures: Dispatcher [employer] Jordan Gresham MD MD cha Attema, Lee RN RN la1 Yeyo Boucher RN RN rr5 Corrections: (The following items were deleted from the chart) 23:16 22:07 11/27/2018 22:07 Discharged to Home. Impression: Chest pain, unspecified; rr5 Essential (primary) hypertension. Condition is Stable. Forms are Medication Reconciliation Form, Thank You Letter, Antibiotic Education, Prescription Opioid Use. Follow up: Private Physician; When: 2 - 3 days; Reason: Recheck today's complaints, Continuance of care, Re-evaluation by your physician. Follow up: Felix Sesay; When: 2 - 3 days; Reason: Recheck today's complaints, Re-evaluation by your physician. Problem is new. Symptoms have improved. cee
[2018-11-27] MEDS ORDERED: LISINOPRIL 5 MG TAB ONE (22:42)
[2018-11-27] MEDS ORDERED: ACETAMINOPHEN 325 MG TABLET ONE (22:42)
[2018-11-27] MEDS ORDERED: ASPIRIN 81 MG CHEWABLE TABLET ONE (22:42)
[2018-11-27 23:22] VITALS: BP 141/94; TEMP 97.1; O2SAT 100
--- NOTE | 2018-11-28 08:02 | RAD REPORT ---
EXAM DESCRIPTION: Florina Single View11/27/2018 9:02 pm CLINICAL HISTORY: Chest pain COMPARISON: April 2018 FINDINGS: The lungs appear clear of acute infiltrate. The heart is normal size IMPRESSION: No acute abnormalities displayed
--- NOTE | 2018-11-28 08:57 | EKG ---
Test Date: 2018-11-27 Test Time: 20:52:06 Second Cutter: GEREMIAS MEASUREMENT RESULTS: Intervals: Rate: 60 FL: 132 QRSD: 74 QT: 402 QTc: 402 Benjamin: P: 60 FL: 132 QRS: 59 T: 26 INTERPRETIVE STATEMENTS: Normal sinus rhythm Normal ECG Compared to ECG 04/21/2018 18:01:31 No significant changes Electronically Signed On 11-28-18 08:56:16 CDT by Pete Dominguez
== END 2018-11-27 23:16 | disposition home or self-care (01) ==
LOC: ER 20:36
DX: I10 Essential (primary) hypertension (principal); Z88.0 Allergy status to penicillin; Z88.1 Allergy status to other antibiotic agents; Z88.8 Allergy status to other drugs, medicaments and biological substances
CPT/HCPCS: 36415; 71045; 80048; 80076; 83735; 83880; 84484; 85025; 93005; 99285

== ENCOUNTER 2021-12-12 05:31 | Emergency (ER) | payer OTHER ==
--- OUTSIDE RECORDS SUMMARY | 2021-12-12 05:35 | XMS REPORT | Continuity of Care Document ---
:1980 Author Organization [facility] t Address [address] [place] [address] Care Team Providers Name Role Phone No MD, Pcp Primary Care Physician Unavailable GUSTAVO CARR Attending Clinician Unavailable MARTINA TURNER Attending Clinician Unavailable VIRAL CARABALLO Attending Clinician Unavailable VIRAL CARABALLO Attending Clinician Unavailable KAMRON Attending Clinician Unavailable Marion Gan Attending Clinician [phone] Jany Carreno RN L Attending Clinician Unavailable JOHN Attending Clinician Unavailable REINA RAIN Attending Clinician Unavailable MARTINA TURNER Attending Clinician Unavailable Carmen Rouse MA Attending Clinician Unavailable Julissa Maki Attending Clinician [phone] YEVGENIY Attending Clinician Unavailable Lizeth Newman Attending Clinician [phone] MARCOS Attending Clinician Unavailable Bob Benedict Attending Clinician Unavailable Mary Ann MATHEWNani S Attending Clinician TRISTA KIDD M.D. Attending Clinician Unavailable CHRETIEN_F Admitting Clinician Unavailable WATERS_S Admitting Clinician Unavailable ANURORHONDA_L Admitting Clinician Unavailable TURNER_FA Admitting Clinician Unavailable Physician, No Primary or Family Admitting Clinician Unavaila ble Payers Payer Name Policy Type Policy Number Effective Date Expiration Date Tramaine montilla [facility] COMMUNITY PLAN [id number] 2017 STAR 00:00:00 [facility] STAR [id number] 2021 00:00:00 [facility] [id number] [place] [id number] [place]ID[place] Problems Condition Condition Condition Status Onset Resolution Last Treating Co mments Source Name Details Category Date Date Treatment Clinician Date De De Disease Active Last [facility] Quervain's Quervain's 5-11 [facility] tenosynovi tenosynovi 00:00: t & Plan: tis, tis, 00 Formattin bilateral bilateral g of this note might be different from the original. Ms. Hood presents today for an acute increase in pain that is affecting daily activitie s. After reevaluat ion determine the source of the pain in discussio n, a cortisone injection was done Acute Acute Disease Active Last UT lateral lateral 07-30 [facility] meniscus meniscus 00:00: t & Plan: tear of tear of 00 Formattin right knee right knee g of this note might be different from the original. right knee arthrosco py medial meniscus repair partial lateral meniscect more and a possible ACL reconstru ction using an allograft . Acute Acute Disease Active Last UT medial medial 07-30 [facility] meniscus meniscus 00:00: t & Plan: tear of tear of 00 Formattin right knee right knee g of this note might be different from the original. Pt states she is doing better, able to tolerate activity at work and has minimal to no pain. Chondromal Chondromal Disease Active U T acia of acia of -29 Health right knee right knee 00:00: 00 Partial Partial Disease Active Last UT tear of tear of 29 [facility] anterior anterior 00:00: t & Plan: cruciate cruciate 00 Formattin ligament ligament g of this of knee of knee note might be different from the original. Surgery risks, benefits, and alternati ves were discussed with the patient regarding operative intervent ion. Risks include but are not limited to pain, bleeding, scarring, infection , damage to nerves, arteries, veins, failure of procedure , possible loosening , migration , or hardware failure, possible choice of implants (Gale[employer]), possible painful or prominent hardware, joint stiffness , need for further procedure s, nonunion, malunion, dislocati on, loss of limb, heart attack, stroke and . Patient voiced understan ding and wished to proceed with operative intervent ions.We discussed exercises for the surgery and in preparati on for surgery as well as the surgery. The surgical procedure would be right knee arthrosco py medial meniscus repair partial lateral meniscect more and a possible ACL reconstru ction using an allograft . Acute pain Acute pain Disease Active Last U T of right of right 4-14 Assessmen [facility] knee knee 00:00: t & Plan: 00 Formattin g of this note might be different from the original. Patient has a negative x-ray with an exam consisten t for meniscus pathology . We will get an MRI of the knee to further evaluate. Overweight Overweight Disease Active U nivers (BMI (BMI 2-22 ity of 25.0-29.9) 25.0-29.9) [place] [facility] Other Other Disease Active Univers chronic chronic 2-22 ity of pain pain 00:00: [place] [address] Medical Branch Myalgia Myalgia Disease Active Univers 2-22 ity of 00:: [address] Branch Anxiety Anxiety Disease Active Univers 2-22 ity of 00:00: [place] [address] Medical Branch Weight Weight Disease Active Univers gain gain 2-22 ity of 00:00: [place] [address] Medical Branch History of History of Problem Resolve UT back pain back pain d Phys ici ans Strain of Strain of Problem Active UT lumbar lumbar Physici region, region, ans initial initial encounter encounter De De Problem Active UT Quervain's [facility]ervain[facility] Ph ysici tenosynovi tenosynovi an s tis, left tis, left De De Problem Active UT Quervain's [facility] Ph ysici tenosynovi tenosynovi an s tis, right tis, right No known No known Disease Metho di active active st problems problems Hospit a l Allergies, Adverse Reactions, Alerts Allergy Allergy Status Severity Reaction(s) Onset Inactive Treating Comm ents Source Name Type Date Date Clinician CEPHALEX DRUG Active N/V Univers IN INGREDI 3-24 ity of 00:00: [place] 00 Medical Branch Cephalex Propensi Active Nausea Univer s in ty to and/or 06-24 ity of adverse Vomiting 00:00: [place] reaction 00 Medical s Branch Cephalex Allergy Active Nausea And 2016-04 UT in to Vomiting 04-19 Health substanc 00:00: e 00 Cephalex Propensi Active 2016-04 Method i in ty to 04-19 adverse 00:00: Hospita reaction 00 l s to drug Penicill Propensi Active 2016-04 Method i ins ty to 04-19 adverse 00:00: Hospita reaction 00 l s to drug Predniso Propensi Active 2016-04 Method i lone ty to 04-19 st adverse 00:00: Hospita reaction 00 l s to drug Penicill Allergy Active Rash 2014-04 UT ins to 05-20 Health substanc 00:00: e 00 Predniso Allergy Active 2014-04 Other UT ne to 05-20 reaction( Health substanc 00:00: s): Other e 00 - See commentsR aised blood sugar and blood pressure PENICILL DRUG Active Rash 2014-04 Univers IN INGREDI 05-20 ity of 00:00: [place] 00 [facility] Branch PREDNISO DRUG Active Other-Cmnt 2014-04 Univ ers NE INGREDI 05-20 ity of 00:00: [place] 00 Medical Branch Predniso Propensi Active Other - See 2014-04 Raised U nivers ne ty to comments 05-20 blood ity of adverse 00:00: sugar and [place] reaction 00 blood Medical s pressure Branch Penicill Propensi Active Rash 2014-04 Univer s in ty to 05-20 ity of adverse 00:00: [place] reaction 00 Medical s Branch Keflex drug Active UT allergy Physici ans Penicill drug Active UT ins allergy Physici ans predniSO drug Active UT NE allergy Physici ans Family History Family Member Diagnosis Comments Start Date Stop Date Source Unknown Family history of Family History [facility]icians Family Member diabetes mellitus Unknown Family history of Family History [facility] Family Member Heart trouble Unknown Family history of Family History [facility] Family Member Liver dysfunction Unknown Family history of Family History [facility] Family Member hypertension Unknown Family history of Family History [facility] Family Member cerebrovascular accident (CVA) Unknown Family history of Family History [facility] Family Member malignant neoplasm Natural Diabetes [facility] Natural Heart disease [facility] Natural Kidney disease [facility] Natural Skin cancer [facility] Natural Stroke [facility] Social History Social Habit Start Date Stop Date Quantity Comments Source History SDOH University o f Alcohol Frequency [place] [facility] History SDOH University o f Alcohol Std [place] [facility] Drinks Branch History SDOH University o f Alcohol Binge [place] [facility] Exposure to 2021-11-30 2021-12-10 Not sure University of SARS-CoV-2 00:00:00 12:03:00 [facility] (event) Branch Tobacco use and 2021-10-17 2021-10-17 Smokeless tobacco Un iversity of exposure 00:00:00 00:00:00 non-user [facility] Cigarette 2021-07-14 2021-07-14 [place] [facility] pack-years 00:00:00 00:00:00 Alcohol Comment 2018-05-03 2018-05-03 social, not Universi ty of 00:00:00 00:00:00 weekly [facility] Alcohol intake 2017-02-17 2017-02-17 Current drinker [facility] dist 00:00:00 00:00:00 of [facility] (finding) Sex Assigned At [birth year] [facility] 00:00:[facility]:00 [facility] Smoking Status Start Date Stop Date Source Never smoked tobacco [place] [facility] Medications Ordered Filled Start Stop Current Ordering Indication Dosage Frequency Signature Comments Components Source Medication Medication Date Date Medication? Clinician (SIG) Name Name magnesium 2021- No 2g 2 g, IV Univ ers sulfate in 12-10 Piggyback, it y of water 2 18:00: 18:39 Administer Tony as gram/50 mL 00 :00 over 60 Medica l (4 %) Minutes, Branch infusion 2 ONCE, 1 g dose, On Mon12/10/21 at 1300, Routine NaCl 0.9% 2021- No 1000mL at 999 Uni vers (NS) bolus 12-10 mL/hr, ity of infusion 18:00: 18:44 1,000 mL, Tony as 1,000 mL 00 :00 IV Medical Infusion, Branch ONCE, 1 dose, On Mon12/10/21 at 1300, SAMSON ketorolac 0 2021- No 15mg 15 mg, Unive rs (TORADOL) 12-10 Slow IV ity of injection 17:15: 17:37 Push, [place] 15 mg 00 :00 ONCE, 1 Medical dose, On Branch Mon12/10/21 at 1215, SAMSON diphenhydrA 0 2021- No 25mg 25 mg, Uni vers MINE 12-10 Slow IV ity of (BENADRYL) 17:15: 17:37 Push, [place] injection 00 :00 ONCE, 1 Medical 25 mg dose, On Branch Mon12/10/21 at 1215, STAT metoclopram 2021- No 10mg 10 mg, Uni vers ruth ann HCl 12-10 Slow IV ity of (REGLAN) 17:15: 17:37 Push, [place] injection 00 :00 ONCE, 1 Medical 10 mg dose, On Branch Mon12/10/21 at 1215, SAMSON ondansetron 2021-0 Yes [id number] 4mg Take 1 Univers 4 mg tablet 12-10 tablet by ity of 00:00: mouth [place] 00 every 8 Medical (eight) Branch hours as needed for Nausea and Vomiting (N/V). sulfamethox 2021-0 Yes [id number] 1{tbl} Take 1 Univers azole-trime 12-10 tablet by ity of thoprim 00:00: mouth in [place] 800-160 mg 00 the Medical per tablet morning Branch and 1 tablet in the evening. sulfamethox 2021-0 2021- No [id number] 1{tbl} Take 1 Univers azole-trime 12-10 tablet by it y of thoprim 00:00: 00:00 mouth in [place] 800-160 mg 00 :00 the Medical per tablet morning Branch and 1 tablet in the evening. ondansetron 2021-0 2021- No [id number] 4mg Take 1 Univers 4 mg tablet 12-10 tablet by it y of 00:00: 00:00 mouth [place] 00 :00 every 8 Medical (eight) Branch hours as needed for Nausea and Vomiting (N/V) for up to 20 doses. benzonatate 2022-0 Yes [id number] 200mg Take 1 Univers 200 mg 7-17 capsule by ity of capsule 00:00: mouth 3 00 (three) Medical times Branch daily as needed for Cough. benzonatate Yes [id number] 200mg Take 1 Univers 200 mg 7-17 capsule by ity of capsule 00:00: mouth 3 [place] 00 (three) Medical times Branch daily as needed for Cough. bupivacaine 2021- No [id number] 1mL UT (Marcaine) 08-11 [id number] Health 0.25 % 17:57: 17:57 injection 1 15 :00 mL triamcinolo 2021- No [id number] 20mg UT ne 08-11 [id number] Health acetonide 17:57: 17:57 (Kenalog-40 15 :00 ) injection 20 mg bupivacaine 2021- No [id number] 1mL UT (Marcaine) 08-11 [id number] Health 0.25 % 17:57: 17:57 injection 1 15 :00 mL triamcinolo 2021- No [id number] 20mg UT ne 08-11 [id number] Health acetonide 17:57: 17:57 (Kenalog-40 15 :00 ) injection 20 mg triamcinolo 2021- No [id number] 20mg 20 mg, UT ne 08-11 [id number] [facility] acetonide 17:57: 17:57 cular, (Kenalog-40 15 :00 Once PRN ) injection Procedure, 20 mg Starting on Mon08/11/21 at 1257, For 1 dose bupivacaine 2021- No [id number] 1mL 1 mL, UT (Marcaine) 08-11 [id number] Injection, Health 0.25 % 17:57: 17:57 Once PRN injection 1 15 :00 Procedure, mL Starting on Mon08/11/21 at 1257, For 1 dose triamcinolo 2021- No [id number] 20mg 20 mg, UT ne 08-11 [id number] [facility] acetonide 17:57: 17:57 cular, (Kenalog-40 15 :00 Once PRN ) injection Procedure, 20 mg Starting on Mon08/11/21 at 1257, For 1 dose bupivacaine 2021- No [id number] 1mL 1 mL, UT (Marcaine) 08-11 [id number] Injection, Health 0.25 % 17:57: 17:57 Once PRN injection 1 15 :00 Procedure, mL Starting on Mon08/11/21 at 1257, For 1 dose Cyanocobala Yes Take by UT min 5-11 mouth. Health (VITAMIN 09:22: B12 PO) 17 Cyanocobala Yes Take by UT min 5-11 mouth. Health (VITAMIN 09:22: B12 PO) 17 Cyanocobala Yes Take by UT min 5-11 mouth. Health (VITAMIN 09:22: B12 PO) 17 Cyanocobala Yes Take by UT min 4-13 mouth. Health (VITAMIN 13:17: B12 PO) 19 Cyanocobala Yes Take by UT min 4-13 mouth. Health (VITAMIN 13:17: B12 PO) 19 Cyanocobala Yes Take by UT min 4-13 mouth. Health (VITAMIN 13:17: B12 PO) 19 meloxicam 2021- No [id number] 15mg Take 1 UT (Mobic) 15 4-13 05-14 tablet (15 He alth MG tablet 00:00: 04:59 mg total) 00 :00 by mouth 1 (one) time each day if needed for mild pain or moderate pain. meloxicam 2021- No [id number] 15mg Take 1 UT (Mobic) 15 4-13 05-14 tablet (15 He alth MG tablet 00:00: 04:59 mg total) 00 :00 by mouth 1 (one) time each day if needed for mild pain or moderate pain. meloxicam 2021- No [id number] 15mg Take 1 UT (Mobic) 15 4-13 05-14 tablet (15 He alth MG tablet 00:00: 04:59 mg total) 00 :00 by mouth 1 (one) time each day if needed for mild pain or moderate pain. meloxicam 2021- No [id number] 15mg Take 1 UT (Mobic) 15 4-13 05-14 tablet (15 He alth MG tablet 00:00: 04:59 mg total) 00 :00 by mouth 1 (one) time each day if needed for mild pain or moderate pain. norethindro 2022-0 Yes 1{tbl} QD Take 1 UT ne 3-21 tablet by [employer] ([facility]) 00:00: mouth 1 0.35 MG 00 (one) time tablet each day. norethindro 2022-0 Yes 1{tbl} QD Take 1 UT ne 3-21 tablet by [employer] ([facility]) 00:00: mouth 1 0.35 MG 00 (one) time tablet each day. norethindro 2022-0 Yes 1{tbl} QD Take 1 UT ne 3-21 tablet by [employer] ([facility]) 00:00: mouth 1 0.35 MG 00 (one) time tablet each day. norethindro 2022-0 Yes 1{tbl} QD Take 1 UT ne 3-21 tablet by [employer] ([facility]) 00:00: mouth 1 0.35 MG 00 (one) time tablet each day. norethindro 2022-0 Yes 1{tbl} QD Take 1 UT ne 3-21 tablet by [employer] ([facility]) 00:00: mouth 1 0.35 MG 00 (one) time tablet each day. norethindro 2022-0 Yes 1{tbl} QD Take 1 UT ne 3-21 tablet by [employer] ([facility]) 00:00: mouth 1 0.35 MG 00 (one) time tablet each day. metoprolol 2022-0 Yes 25mg Take 25 mg U nivers succinate 3-10 by mouth. ity o f XL 25 mg 24 00:00: [place] hr tablet 00 Medical Branch metoprolol 2022-0 Yes 25mg Take 25 mg U nivers succinate 3-10 by mouth. ity o f XL 25 mg 24 00:00: [place] hr tablet 00 Medical Branch metoprolol 2022-0 Yes 25mg QD Take 25 mg U T succinate 3-10 by mouth 1 Heal th XL 00:00: (one) time (Toprol-XL) 00 each day. 25 MG 24 hr tablet metoprolol 2022-0 Yes 25mg QD Take 25 mg U T succinate 3-10 by mouth 1 Heal th XL 00:00: (one) time (Toprol-XL) 00 each day. 25 MG 24 hr tablet metoprolol 2022-0 Yes 25mg QD Take 25 mg U T succinate 3-10 by mouth 1 Heal th XL 00:00: (one) time (Toprol-XL) 00 each day. 25 MG 24 hr tablet metoprolol 2022-0 Yes 25mg QD Take 25 mg U T succinate 3-10 by mouth 1 Heal th XL 00:00: (one) time (Toprol-XL) 00 each day. 25 MG 24 hr tablet metoprolol 2022-0 Yes 25mg QD Take 25 mg U T succinate 3-10 by mouth 1 Heal th XL 00:00: (one) time (Toprol-XL) 00 each day. 25 MG 24 hr tablet metoprolol 2022-0 Yes 25mg QD Take 25 mg U T succinate 3-10 by mouth 1 Heal th XL 00:00: (one) time (Toprol-XL) 00 each day. 25 MG 24 hr tablet azithromyci 2020-0 Yes [id number] 250mg Take 1 Univers n 250 mg 3-25 tablet by ity of tablet 00:00: mouth [place] 00 daily. Medical Take 500 Branch mg day 1, then 250 mg days 2 to 5. azithromyci 2020-0 Yes [id number] 250mg Take 1 Univers n 250 mg 3-25 tablet by ity of tablet 00:00: mouth [place] 00 daily. Medical Take 500 Branch mg day 1, then 250 mg days 2 to 5. levonorgest Yes 1{devic 1 Device Univers rel 9-13 e} by ity of (MIRENA) 20 10:07: Intrauteri [place] mcg/24 hr 30 ne route Medica l (5 years) once now. Branc h IUD levonorgest Yes 1{devic 1 Device Univers rel 9-13 e} by ity of (MIRENA) 20 10:07: Intrauteri [place] mcg/24 hr 30 ne route Medica l (5 years) once now. Branc h IUD meloxicam 2016-04 Yes TK 1 T PO Met hodi (MOBIC) 7.5 1-[address] mg tablet 00:00: Hospita 00 l metoprolol 2016-04 Yes TK 1 T PO Me thodi succinate 1-[address] XL 00:00: Hospita (TOPROL-XL) 00 l 25 mg 24 hr tablet Vital Signs Vital Name Observation Time Observation Value Comments Source Systolic blood 2021-12-10 17:06:00 151 mm[Hg] Univer sity of pressure [facility] Diastolic blood 2021-12-10 17:06:00 88 mm[Hg] Unive rsity of [facility] Heart rate 2021-12-10 17:06:00 80 /min [facility] Body temperature 2021-12-10 17:06:00 36.94 [facility] rate 2021-12-10 17:06:00 16 /min [facility] Body height 2021-12-10 17:06:[address] [facility] Body weight 2021-12-10 17:06:[address] [facility] BMI 2021-12-10 17:06:00 31.95 kg/m2 [facility] Oxygen saturation in 2021-12-10 17:06:00 98 /min [facility] blood by [facility] Pulse oximetry [place] Body height 2021-07-30 12:10:00 165.[facility] [place] [facility] weight 2021-07-30 12:10:00 86.637 kg [facility] h BMI 2021-07-30 12:10:00 31.78 kg/m2 [facility] Procedures Procedure Date / Time Performed Performing Clinician Sour e URINALYSIS 2021-12-10 17:24:00 Viral Caraballo [place] [facility] POCT TEST 2021-12-10 17:24:[address] [facility] CONSENT/REFUSAL FOR 2021-12-10 16:56:00 [facility] Name [facility] TREATMENT INJECT TENDON 2021-08-11 17:57:15 Gustavo Carr [place] [facility] SHEATH/LIGAMENT BILATERAL MR Wrist wo contrast 2018-06-22 00:00:00 [place] [facility] [id number] [place] of [place]nee [place] [facility] surgery Plan of Care Planned Activity Planned Date Details Comments Source Future Scheduled 2021-12-03 HE[facility]ITIS [facility] Test 04:34:41 VACCINES (1 of 3 - 3-dose series) [code = HEPATITIS B VACCINES (1 of 3 - 3-dose series)] Future Scheduled 2021-12-03 COVID-19 VACCINE [facility] Test 04:34:41 (#1) [code = COVID-19 VACCINE (#1)] Future Scheduled 2021-12-03 Screening for [facility] Test 04:34:41 malignant neoplasm of cervix (procedure) [code = 976515543] Future Scheduled 2021-12-03 BREAST CANCER [facility] Test 04:34:41 SCREENING [code = BREAST CANCER SCREENING] Future Scheduled 2021-12-03 INFLUENZA VACCINE [facility] Test 04:34:41 [code = INFLUENZA VACCINE] Encounters Start End Encounter Admission Attending Care Care Encounter Source Date/Time Date/Time Type Type Clinicians Facility Department ID 2021-11-01 Outpatient [facility] [id number] [place] 07:23:28 [id number] [facility] 2021-09-14 Outpatient LILLY [facility] [id number] [place] 09:21:19 GUSTAVO [id number] [facility] 2021-09-10 Outpatient LILLY [facility] [id number] [place] 14:30:30 GUSTAVO [id number] [facility] 2021-09-07 Outpatient [facility] [id number] [place] 11:21:45 [id number] [facility] 2021-08-23 Outpatient [facility] [id number] [place] 12:17:17 [id number] [facility] 2021-08-20 Outpatient [facility] [id number] UT 07:49:57 [id number] [facility] 2021-08-18 Outpatient [facility] [id number] UT 10:04:33 [id number] [facility] 2021-08-11 Outpatient LILLY [facility] [id number] [place] 08:54:30 GUSTAVO [id number] [facility] 2021-08-10 Outpatient [facility] [id number] [place] 11:40:46 [id number] [facility] 2021-08-09 Outpatient LILLY [facility] [id number] [place] 10:09:16 GUSTAVO [id number] [facility] 2021-08-02 Outpatient LILLY [facility] [id number] [place] 08:38:00 GUSTAVO [id number] [facility] 2021-07-30 Outpatient [facility] [id number] [place] 07:02:51 MARTINA Wang [id number] [facility] 2021-07-23 Outpatient VLAD [facility] [id number] [place] 16:27:27 E, MARTINA [id number] [facility] 2021-07-14 Outpatient LILLY [facility] [id number] [place] 12:57:48 GUSTAVO [id number] [facility] 2021-07-13 Outpatient [facility] [id number] [place] 14:44:26 [id number] [facility] 2021-07-12 Outpatient LILLY [facility] [id number] [place] 09:23:40 GUSTAVO [id number] [facility] 2021-12-10 2021-12-10 Emergency X VIRAL CARABALLO [facility] ERT 1 [id number] [facility] 12:07:00 13:45:00 VIRAL CARABALLO [facility] 2021-12-10 2021-12-10 Emergency Ilya [facility] [id number] [facility] 12:07:00 13:45:00 Viral UMANZOR [id number] i ty of IZZY [id number] [facility] [id number] [address] 2021-12-08 2021-12-08 Outpatient CHRETIEN_F [facility] [id number] [facility] [place] 00:00:00 00:00:00 [facility] 2021-12-07 2021-12-07 Outpatient CHRETIEN_F [facility] [id number] - [place] 00:00:00 00:00:00 906 [facility] 2021-12-07 2021-12-07 Outpatient Chretien, [facility] [id number] 00:00:00 00:00:00 Marion [id number] 2021-12-02 2021-12-02 Telephone Wai CEJA [id number] [facility] 00:00:00 00:00:00 , Jany ROCK [id number] ity of CLAUDINEZA [id number] [facility] [id number] [address] 2021-11-30 2021-11-30 Outpatient CHRETIEN_F [facility] [id number] - [place] 00:00:00 00:00:00 830 [facility] 2021-11-29 2021-11-29 Outpatient WATERS_S [facility] [id number] [place] 00:00:00 00:00:00 829 [facility] 2021-11-29 2021-11-29 Outpatient Chretien, [facility] [id number] 00:00:00 00:00:00 [place] [id number] 2021-11-10 2021-11-10 Outpatient WATERS_S [facility] [id number] [place] 00:00:00 00:00:00 810 [facility] 2021-11-09 2021-11-09 Office MILLI Carr [facility] [id number] [place] 09:45:00 10:26:54 Visit Gustavo CHANTELLE [id number] [facility] [id number] [place] [id number] 2021-09-14 2021-09-14 Office MILLI Carr [facility] [id number] [place] 09:30:00 09:51:27 Visit Gustavo CHANTELLE [id number] H [facility] [id number] [place] 4 [id number] 2021-09-13 2021-09-13 Outpatient Oscar RAIN [facility] [id number] [facility] 09:30:00 09:30:00 REINA orourke [facility] 2021-09-06 2021-09-06 Outpatient VLAD [facility]BL [id number] [facility]BL 06:02:00 09:54:00 MARTINA Wang 2021-09-06 2021-09-06 Outpatient VLAD [facility] [id number] [place] 09:30:00 09:30:00 MARTINA Wang 2021-08-11 2021-08-11 Office MILLI Carr [facility] [id number] [place] 09:30:00 09:53:02 Visit Gustavo [facility] [id number] [facility] MEDICAL [id number] [place] 3 [id number] 2021-08-09 2021-08-09 Telephone Carmen Rouse [facility] [id number] [place] 00:00:00 00:00:00 Carmen Rouse [id number] Health MEDICAL [id number] [place] 0 [id number] 2021-07-30 2021-07-30 Office Vlad [facility] [id number] [place] 07:00:00 08:00:20 Visit Martina wang [id number] Health MEDICAL [id number] [place] [id number] 2021-07-27 2021-07-27 Outpatient [facility] [id number] [place] 07:40:00 07:40:00 [facility] 2021-07-27 2021-07-27 Outpatient [facility] [id number] [place] 07:40:00 07:40:00 502 [facility] 2021-07-14 2021-07-14 Office MILLI Carr [facility] [id number] [place] 13:15:00 13:31:43 Visit Gustavo LOCKHART [id number] H [facility] MEDICAL [id number] [place] 1 [id number] 2021-06-18 2021-06-18 Outpatient [facility] [id number] [place] 04:17:00 04:17:00 318 [facility] 2021-06-18 2021-06-18 Outpatient [facility] [id number] [place] 04:17:00 04:17:00 401 [facility] 2021-06-03 2021-06-03 Outpatient [facility] [id number] [place] 03:15:00 03:15:00 303 [facility] 2021-06-03 2021-06-03 Outpatient [place] [id number] 00:00:00 00:00:00 Julissa [id number] 2021-05-15 2021-05-15 Outpatient [facility] [id number] [place] 02:57:00 02:57:00 212 [facility] 2021-05-12 2021-05-12 Outpatient [facility] [id number] [place] 05:11:00 05:11:00 209 [facility] 2021-05-12 2021-05-12 Outpatient [facility] [id number] 00:00:00 00:00:00 Julissa [id number] 2021-04-20 2021-04-20 Outpatient [facility] [id number] [place] 05:57:00 05:57:00 118 [facility] 2021-04-20 2021-04-20 Outpatient [place] [facility] [id number] 00:00:00 00:00:00 Julissa [id number] 2020-09-04 2020-09-04 Outpatient [facility] 951 [place] 09:32:00 09:32:00 _L 604 [facility] 2020-09-04 2020-09-04 Outpatient [facility] [id number] 00:00:00 00:00:00 , Lizeth [id number] Afshan [id number] 2020-09-02 2020-09-02 Outpatient [facility] 951 [place] 02:46:00 02:46:00 _L 602 [facility] 2020-04-24 2020-04-24 Outpatient [facility] [id number] [place] 10:55:00 10:55:00 122 [facility] 2020-04-24 2020-04-24 Outpatient [place] [facility] [id number] 00:00:00 00:00:00 , Lizeth [id number] Afshan [id number] 2019-10-14 2019-10-14 Outpatient YANG Segovia [facility] [id number] [facility] 10:12:00 10:12:00 Bob 32 We [facility] 2019-06-28 2019-06-28 Telephone Mary Ann [facility] [id number] 00:00:00 00:00:00 Nani Umanzor [id number] [place] [id number] Anabel [id number] 2018-12-28 2018-12-28 Appointmen [facility] Orth[facility] [id number] [place] 12:00:00 12:00:00 t; HARISH BECKFORD, [facility] TRISTA Yo ans ANDREW, M.D. M.D. 2018-07-06 2018-07-06 Appointmen [facility] Orth[facility] [id number] [place] 11:45:00 11:45:00 t[facility] ANDREW, M.D. M.D. 2018-06-22 2018-06-22 Appointmen [facility] Orthopedics [id number] [place] 08:45:00 08:45:00 t; [facility] ANDREW, M.D. M.D. 2017-07-10 2017-07-10 Appointmen [facility] [id number] [place] 08:30:00 08:30:00 t; Apolinar KIDD ANDREW, ans ANDREW, M.D. M.D. Results Test Description Test Time Test Comments Results Result Comments Source POCT TEST 2021-12-10 17:24:00 Test Item Value Reference Range Interpretation Comme nts POCT PREG (test code = 1605) negative On board controls acceptable with C Line (test code = 3574) present POCT PREG LOT # (test code = 3575) [id number] POCT PREG TEST DATE (test code = 3576) Lab Interpretation (test code = 13419-5) Normal [facility]- XR UGI DBL [id number] 11:24:00 Patient Name: JENNIFER HOOD Unit No: [id number] EXAMS: CPT CODE: [id number] XR UGI DBL CONTRAST [id number] Upper GI single contrast. History: DYSPHAGIA, VOMITING Comparison: None at this time Location: B2 The examination is limited, as the patient did not ingest air crystals and only swallowed a re latively small amount of barium. The esophageal motility is normal. A gastric band is identified. There is no evidence of slippage of the gastric band. Assessment of the stomach is limited secondary to the gastric band. Barium passes through the area of the gastric band without difficulty. The stomach is unremarkable. No extravasation of contrast material is identified. Fluoroscopy time: 0.8 minutesNumber of images: 6 IMPRESSION: Unremarkable post gastric band upper GI. at 1124 Reported and signed by: Felix Painting MD CC: Technologist: Brock Funes, RT(R) Transcrpt Date/Tm/Trnsp: 10/14/2019 (1124) t.[email or web address] Orig Print D/T: S: 10/14/2019 (1127) [facility] NAME: JENNIFER HOOD [address] PHYS: [place] [address] : 1980 AGE: 39 SEX: F LOC: ZDENISE PHONE #: [phone] EXAM DATE: 10/14/2019 STATUS: REG CLI FAX #: [phone] RADIOLOGY NO: PAGE 1 SignedReportMR Wrist wo contrast [id number] 10:47:00 Test Item Value Reference Range Interpretation Comments Wrist wo contrast MR Cancel Reason: Ordered (test code = Wrist wo In Error contrast MR) [facility][U] XR HAND MIN 3 VWS [id number] 09:29:00Images acquired, not reported on this accession number.[facility]
[2021-12-12 06:31] LABS: Absolute Lymphocytes (CBC) 1.5 K/uL (0.7-4.9); Hematocrit 39.6 % (36.0-45.0); Lymphocytes % 24.8 % (15.3-44.8); MCV 86.5 fL (80-100); MPV 8.1 fL (7.6-11.3); RBC Red Blood Cell Count 4.58 M/uL (3.86-4.86)
[2021-12-12 06:39] LABS: Urine Blood Trace-intact (Negative); Urine Glucose Negative (Negative); Urine Protein Negative (Negative); Urine Specific Gravity 1.025 (1.005-1.030); Urine pH 6.5 (5.0-7.0)
[2021-12-12 06:53] LABS: Albumin 3.7 g/dL (3.4-5.0); Bilirubin Total 0.5 mg/dL (0.2-1.0); Potassium 3.9 mmol/L (3.5-5.1); Protein, Total 7.7 g/dL (6.4-8.2)
[2021-12-12] MEDS ORDERED: MORPHINE 4 MG/ML SYR ONE (06:53)
[2021-12-12] MEDS ORDERED: ONDANSETRON 4 MG/2 ML VIAL ONE (06:53)
[2021-12-12] MEDS ORDERED: NA CHLORIDE 0.9% 1,000 ML ONE (06:53)
[2021-12-12 07:05] LABS: Urine Mucus Slight /HPF (None Seen); Urine RBC <5 /HPF (None Seen)
--- NOTE | 2021-12-12 07:37 | RAD REPORT ---
EXAM DESCRIPTION: CTAbdomen Pelvis W Contrast - 12/12/2021 7:27 am CLINICAL HISTORY: Abdominal pain. back pain, eval for pyelo COMPARISON: CT ABD PELVIS W CONTRAST dated 07/23/2014; CT ABD PELVIS W CONTRAST dated 02/08/2012; CT A BD PELVIS W CONTRAST dated 12/25/2007 TECHNIQUE: Biphasic CT imaging of the abdomen and pelvis was performed with 100 ml non-ionic IV cont rast. All CT scans are performed using dose optimization technique as appropriate and may include automated exposure control or mA/KV adjustment according to patient size. FINDINGS: The lung bases are clear.Gastric banding noted. Small benign-appearing cysts are present in the liver. No aggressive liver lesion or biliary dilatati on. The spleen, pancreas, adrenal glands are normal. Benign cyst left kidney. The right kidney is nor mal. No hydronephrosis or mass. No bowel obstruction, free air, free fluid or abscess. Moderate stool is present in the colon. The ap pendix is normal. No evidence of significant lymphadenopathy. No suspicious bony findings. IMPRESSION: No acute intra-abdominal or pelvic finding.
--- NOTE | 2021-12-12 08:50 | EDPHYS ---
Physician Documentation [facility] Name: Massiel Hood Age: 41 yrs Sex: Female : 1980 Arrival Date: 12/12/2021 Time: 05:33 Bed 13 Private MD: MARGARITO Physician Jordan Mon HPI: 12/12 06:48 This 41 yrs old Female presents to ER via Ambulatory with complaints of Back Pain. rn 06:54 The patient presents with pain that is acute, with no known mechanism of injury. The rn symptoms are located in the low back. Onset: The symptoms/episode began/occurred 1 week(s) ago. The pain does not radiate. Associated signs and symptoms: Pertinent negatives: abdominal pain, chest pain, fever, incontinence, numbness, tingling, urinary retention. Modifying factors: The patient symptoms are alleviated by nothing, the patient symptoms are aggravated by nothing. Severity of symptoms: At their worst the symptoms were moderate, in the emergency department the symptoms are unchanged. The patient has not experienced similar symptoms in the past. The patient has been recently seen by a physician:. Pt reports diagnosed with UTI 2 days ago, put on bactrim, at [place] [facility], reports taking abx and now back is hurting more. no fever or urinary symptoms. No trauma. . 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 - Social history:: Smoking status: Patient denies any tobacco usage or history of. - Family history:: not pertinent. - Hospitalizations: : No recent hospitalization is reported. ROS: 06:54 Constitutional: Negative for fever, chills, and weight loss, Eyes: Negative for injury, rn pain, redness, and discharge, Neck: Negative for injury, pain, and swelling, Cardiovascular: Negative for chest pain, palpitations, and edema, Respiratory: Negative for shortness of breath, cough, wheezing, and pleuritic chest pain, Abdomen/GI: Negative for abdominal pain, nausea, vomiting, diarrhea, and constipation, Back: + back pain MS/Extremity: Negative for injury and deformity, Skin: Negative for injury, rash, and discoloration, Neuro: Negative for headache, weakness, numbness, tingling, and seizure. Exam: 06:54 Constitutional: This is a well developed, well nourished patient who is awake, alert, rn and in no acute distress. Head/Face: Normocephalic, atraumatic. Cardiovascular: Regular rate and rhythm. No pulse deficits. Respiratory: No increased work of breathing, no retractions or nasal flaring. Abdomen/GI: Soft, non-tender Back: No spinal tenderness. No costovertebral tenderness. Full range of motion. Skin: Warm, dry MS/ Extremity: Pulses equal, no cyanosis. Neuro: Awake and alert, GCS 15 Vital Signs: 05:48 BP 133 / 89; Pulse 82; Resp 16 S; Temp 99(O); Pulse Ox 97% on R/A; Weight 87.09 kg (R); bb Height 5 ft. 5 in. (165.10 cm) (R); Pain 10/10; 08:11 BP 124 / 69; Pulse 69; Resp 18; Pulse Ox 97% on R/A; ph 08:53 BP 124 / 72; Pulse 72; Resp 16; Temp 97; Pulse Ox 97% ; Pain 2/10; ko1 05:48 Body Mass Index 31.95 (87.09 kg, 165.10 cm) bb MDM: 05:36 Patient medically screened. rn 08:48 Differential diagnosis: Basilar Pneumonia chronic back pain, Fatigue Fracture cee Hydronephrosis Osteoarthritis Pyelonephritis Renal Infarction ruptured disc, sprain, Ureterolithiasis. Data reviewed: vital signs, nurses notes, lab test result(s), radiologic studies, CT scan. Data interpreted: environmental monitoring technician: rate is 69 beats/min, rhythm is regular, Pulse oximetry: on room air. Test interpretation: by ED physician or midlevel provider: plain radiologic studies. Counseling: I had a detailed discussion with the patient and/or guardian regarding: the historical points, exam findings, and any diagnostic results supporting the discharge/admit diagnosis, lab results, radiology results, the need for outpatient follow up, for definitive care, a family practitioner. 12/12 05:45 Order name: CBC with Diff; Complete Time: 07:17 rn 12/12 05:45 Order name: CMP; Complete Time: 07:17 rn 12/12 05:45 Order name: Lipase; Complete Time: 07:17 rn 12/12 05:45 Order name: Urine Microscopic Only; Complete Time: 07:17 rn 12/12 05:45 Order name: Urine Culture rn 12/12 06:39 Order name: Urine Dipstick-Ancillary; Complete Time: 07:17 EDMS 12/12 05:45 Order name: CT Abd/Pelvis - IV Contrast Only; Complete Time: 08:47 rn 12/12 05:45 Order name: IV Saline Lock; Complete Time: 06:39 rn 12/12 05:45 Order name: Labs collected and sent; Complete Time: 06:39 rn 12/12 05:45 Order name: Urine Dipstick-Ancillary (obtain specimen); Complete Time: 06:39 rn Administered Medications: 06:45 Drug: NS 0.9% 1000 ml Route: IV; Rate: 1 bolus; Site: right antecubital; jb4 06:45 Drug: Zofran (Ondansetron) 4 mg Route: IVP; Site: right antecubital; jb4 06:51 Drug: morphine 4 mg Route: IVP; Infused Over: 4 mins; Site: right antecubital; jb4 Disposition Summary: 12/12/21 08:50 Discharge Ordered Location: Home cee Problem: new cee Symptoms: have improved cee Condition: Stable cee Diagnosis - UTI/ Urinary tract infection, site not specified cee - Low back pain cee Followup: cee - With: Private Physician - When: 2 - 3 days - Reason: Recheck today's complaints, Continuance of care, Re-evaluation by your physician Discharge Instructions: - Discharge Summary Sheet cee - Acute Back Pain, Adult cee - Musculoskeletal Pain cee - Urinary Tract Infection, Adult cee - Urinary Tract Infection, Adult, [id number] cee Forms: - Medication Reconciliation Form cee - Thank You Letter cee - Antibiotic Education cee - Prescription Opioid Use [facility] Prescriptions: - Ibuprofen 600 mg Oral Tablet - take 1 tablet by ORAL route every 6 hours As needed take with food; 2 tablet; [facility] Refills: 0, Product Selection Permitted - Cyclobenzaprine 5 mg Oral Tablet - take 1 tablet by ORAL route 3 times per day As needed; 15 tablet; Refills: 0, cee Product Selection Permitted - levofloxacin 500 mg Oral Tablet - take 1 tablet by ORAL route once daily for 7 days; 7 tablet; Refills: 0, cee Product Selection Permitted Signatures: Dispatcher [employer] EDMS Jordan Mon MD MD cha Ballard, Brenda, RN RN Tyshawn Ovalle MD MD rn Bryson, James, RN RN jb4 Corrections: (The following items were deleted from the chart) 06:39 05:45 Urine Test ordered. rn [email or web address] :54 06:49 Details of fall: The patient fell from an upright position, while standing, rn rn :54 06:49 Onset: The symptoms/episode began/occurred just prior to arrival, rn rn :54 06:49 Associated injuries: The patient sustained injury to the head, upper back injury, rn injury to the low back, rn :54 06:49 Severity of symptoms: At their worst the symptoms were moderate, in the emergency rn department the symptoms are unchanged, rn :54 06:49 The patient has not experienced similar symptoms in the past, rn rn :54 06:49 The patient has not recently seen a physician, rn rn :54 06:49 Constitutional: Negative for fever, chills, and weight loss, Eyes: Negative for rn injury, pain, redness, and discharge, Neck: Negative for injury, pain, and swelling, Cardiovascular: Negative for chest pain, palpitations, and edema, Respiratory: Negative for shortness of breath, cough, wheezing, and pleuritic chest pain, Abdomen/GI: Negative for abdominal pain, nausea, vomiting, diarrhea, and constipation, Back: + back pain after fall MS/Extremity: Negative for injury and deformity, Skin: Negative for injury, rash, and discoloration, Neuro: Negative for weakness, numbness, tingling, and seizure, rn 06:54 06:50 Constitutional: This is a well developed, well nourished patient who is awake, rn alert, appears in pain Head/Face: Normocephalic, atraumatic. Eyes: Periorbital areas with no swelling, redness, or edema. Neck: No midline cervical tenderness Cardiovascular: Regular rate and rhythm. No pulse deficits. Respiratory: No increased work of breathing, no retractions or nasal flaring. Abdomen/GI: Soft, non-tender Back: + lower back tenderness without focal spinal tenderness or stepoff Skin: Warm, dry with normal turgor. + superficical skin abrasions/tears to right forearm, no laceration MS/ Extremity: Pulses equal, no cyanosis. Neurovascular intact. Full, normal range of motion. Equal circumference. Neuro: Awake and alert, GCS 15, oriented to person, place, time, and situation. Cranial nerves II-XII grossly intact. Motor strength 5/5 in all extremities. Sensory grossly intact. rn
--- NOTE | 2021-12-12 08:50 | ER ---
Nurse's Notes [facility] Name: Massiel Hood Age: 41 yrs Sex: Female : 1980 Arrival Date: 12/12/2021 Time: 05:33 Bed 13 Private MD: Diagnosis: UTI/ Urinary tract infection, site not specified;Low back pain Presentation: 12/12 05:48 Chief complaint: Patient states: she is having bad lower back pain which is getting bb worse was diagnosed with a UTI a few days ago and started on Bactrim but tonight she couldn't sleep or get comfortable because the pain is too much. Coronavirus screen: At this time, the client does not indicate any symptoms associated with coronavirus-19. Ebola Screen: No symptoms or risks identified at this time. Initial Sepsis Screen: Does the patient meet any 2 criteria? No. Patient's initial sepsis screen is negative. Does the patient have a suspected source of infection? Yes: Dysuria/Frequency/Urgency/UTI. Risk Assessment: Do you want to hurt yourself or someone else? Patient reports no desire to harm self or others. Onset of symptoms is unknown. 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 - Social history:: Smoking status: Patient denies any tobacco usage or history of. - Family history:: not pertinent. - Hospitalizations: : No recent hospitalization is reported. Screenin:20 Abuse screen: Denies threats or abuse. Nutritional screening: No deficits noted. jb4 Tuberculosis screening: No symptoms or risk factors identified. Fall Risk None identified. Assessment: 06:20 General: Appears in no apparent distress. comfortable, Behavior is calm, cooperative, jb4 appropriate for age. Pain: Complains of pain in low back area Pain does not radiate. Pain currently is 10 out of 10 on a pain scale. Neuro: Level of Consciousness is awake, alert, obeys commands, Oriented to person, place, time, situation. Cardiovascular: Patient's skin is warm and dry. Respiratory: Airway is patent Respiratory effort is even, unlabored, Respiratory pattern is regular, symmetrical. GI: No signs and/or symptoms were reported involving the gastrointestinal system. : No signs and/or symptoms were reported regarding the genitourinary system. EENT: No signs and/or symptoms were reported regarding the EENT system. Derm: Skin is intact, Skin is pink, warm \T\ dry. Musculoskeletal: Circulation, motion, and sensation intact. Range of motion: intact in all extremities. Vital Signs: 05:48 BP 133 / 89; Pulse 82; Resp 16 S; Temp 99(O); Pulse Ox 97% on R/A; Weight 87.09 kg (R); bb Height 5 ft. 5 in. (165.10 cm) (R); Pain 10/10; 08:11 BP 124 / 69; Pulse 69; Resp 18; Pulse Ox 97% on R/A; ph 08:53 BP 124 / 72; Pulse 72; Resp 16; Temp 97; Pulse Ox 97% ; Pain 2/10; ko1 05:48 Body Mass Index 31.95 (87.09 kg, 165.10 cm) ED Course: 05:33 Patient arrived in ED. ja2 05:36 Tyshawn Patterson MD is Attending Physician. rn 05:51 Triage completed. bb 05:51 Arm band placed on Patient placed in an exam room, on a stretcher, on pulse oximetry. bb 06:20 Patient has correct armband on for positive identification. Bed in low position. Call jb4 light in reach. Side rails up X 1. Client placed on continuous cardiac and pulse oximetry monitoring. NIBP monitoring applied. 06:20 Initial lab(s) drawn, by me, sent to lab. Inserted saline lock: 18 gauge in right jb4 antecubital area, using aseptic technique. Blood collected. 07:22 Attending Physician role handed off by Tyshawn Patterson MD cee 07:22 Jordan Mon MD is Attending Physician. cee 07:29 CT Abd/Pelvis - IV Contrast Only In Process Unspecified. EDMS 07:35 Meli Fierro, CATRACHITA is Primary Nurse. ko1 08:53 No provider procedures requiring assistance completed. IV discontinued, intact, ko1 bleeding controlled, No redness/swelling at site. Pressure dressing applied. Administered Medications: 06:45 Drug: NS 0.9% 1000 ml Route: IV; Rate: 1 bolus; Site: right antecubital; jb4 06:45 Drug: Zofran (Ondansetron) 4 mg Route: IVP; Site: right antecubital; jb4 06:51 Drug: morphine 4 mg Route: IVP; Infused Over: 4 mins; Site: right antecubital; jb4 Medication: 08:53 VIS not applicable for this client. ko1 Outcome: 08:50 Discharge ordered by . cee 08:53 Discharged to home ambulatory. ko1 08:53 Condition: good 08:53 Discharge instructions given to patient, Instructed on discharge instructions, follow up and referral plans. medication usage, Demonstrated understanding of instructions, follow-up care, medications, Prescriptions given X 3. 09:01 Patient left the ED. ko1 Signatures: Dispatcher [employer] EDMS Jordan Mon MD MD cha Ballard, Brenda, RN RN Tyshawn Ovalle MD MD rn Hall, Patricia, RN RN ph Bryson, James, RN RN [email or web address] Dior Bills Kathy, CATRACHITA RN ko1
[2021-12-12 09:59] VITALS: O2SAT 97
[2021-12-12 10:06] VITALS: BP 124/72; TEMP 97
== END 2021-12-12 09:01 | disposition home or self-care (01) ==
LOC: ER 05:31
DX: N39.0 Urinary tract infection, site not specified (principal); I10 Essential (primary) hypertension; Z88.0 Allergy status to penicillin; Z88.1 Allergy status to other antibiotic agents; Z88.8 Allergy status to other drugs, medicaments and biological substances
CPT/HCPCS: 87088; 85025; 87086; 36415; 83690; 80053; 74177; 96375; 96374; 99284; Q9967; J7030; J2405; 81003; 81015